=== PATIENT | male | born 1940 | race Caucasian/White ===

== ENCOUNTER 2018-12-03 07:23 | Outpatient (CLI) | payer MEDICARE ==
[2018-11-29 12:56] VITALS: BMI 25.1
[~2018-12-03 07:23] MED LIST: ASCORBIC ACID500 MG PO; MELATONIN5 MG PO; MICARDIS HCT 81 EACH PO; PRAVACHOL80 MG PO; VITAMIN D5000 UNIT PO; VITAMIN E200 UNI1 PO
[2018-12-03 08:13] LABS: BASOPHILS 0.2 % (0-2); EOSINOPHILS 2.6 % (0-7); HEMATOCRIT 42.9 % (42.0-54.0); LYMPHOCYTES 19.7 % (15-50); MCH 31.6 pg (26.0-34.0); MCV 90.5 fL (80.0-100.0); MEAN PLATELET VOLUME 9.9 fL (7.4-10.4); MONOCYTES 12.1 % (2-11); NEUTROPHILS 65.4 % (40-80); PLATELET COUNT 202 10x3/uL (130-400); RBC 4.74 10x6/uL (4.20-6.10); RDW 12.7 % (11.5-14.5)
[2018-12-03 08:27] LABS: APTT 32.2 SECONDS (22.8-39.4); INR 1.02 (0.85-1.17); PROTIME 12.9 SECONDS (11.6-15.0)
[2018-12-03 08:44] LABS: CALC OSMOLALITY 270 mosm/kg (275-300); CALCIUM 9.7 mg/dL (8.5-10.1); CHLORIDE - SERUM 99 mmol/L (98-107); CREATININE - SERUM 0.9 mg/dL (0.6-1.3); GLUCOSE 122 mg/dL (74-106); POTASSIUM - SERUM 4.2 mmol/L (3.5-5.1); SODIUM 135 mmol/L (136-145); UREA NITROGEN 13 mg/dL (7-18); eGFR NON AFRICAN AMERICAN 86 mL/min (90-120)
[2018-12-03] MEDS ORDERED: XANAX0.25 MG PO (09:17)
[2018-12-03] MEDS ORDERED: CLONIDINE HCL (09:19)
--- NOTE | 2018-12-03 11:10 | NUR ---
1115 SEE FREQUENT VS SHEET
--- NOTE | 2018-12-03 11:31 | NUR ---
PT RESTING WITH FAMILY AT BEDSIDE. APPEARS COMFORTABLE AND NO SOB NOTED.
--- NOTE | 2018-12-03 12:08 | NUR ---
PT RESTING AND VS STABLE, DENIES PAIN AT SITE. AT BEDSIDE. INSTRUCTIONS ABOUT HIS PROCEDURE GIVEN FROM PAMPHLET
--- NOTE | 2018-12-03 12:09 | NUR ---
CXR HERE AND DONE TOLERATED WELL
--- NOTE | 2018-12-03 13:07 | NUR ---
XRAY REPORT GOOD PER RADIOLOGY
== END 2018-12-03 14:29 | disposition home or self-care (01) ==
LOC: D.SP 07:23 → D.CT 09:00 → D.SP 14:29
PROVIDERS: Radiology Vascular & Interventional Radiology; ATTEND Family Medicine
DX: C34.2 Malignant neoplasm of middle lobe, bronchus or lung (principal); Z01.812 Encounter for preprocedural laboratory examination

== ENCOUNTER 2019-01-23 11:39 | Inpatient (IN) | payer MEDICARE ==
[~2019-01-23] VITALS: Ht 182.9 cm; Wt 87.6 kg
[~2019-01-23 11:39] MED LIST changes: +CLONIDINE HCL; +XANAX0.25 MG PO
[2019-01-23 13:57] LABS: ALBUMIN 4.1 g/dL (3.4-5.0); ALKALINE PHOSPHATASE 61 U/L (46-116); ALT (SGPT) 27 U/L (10-68); BILIRUBIN - TOTAL 0.62 mg/dL (0.2-1.3); CALC OSMOLALITY 272 mosm/kg (275-300); CALCIUM 9.7 mg/dL (8.5-10.1); CARBON DIOXIDE 32.4 mmol/L (21.0-32.0); CHLORIDE - SERUM 99 mmol/L (98-107); CREATININE - SERUM 0.8 mg/dL (0.6-1.3); GLUCOSE 103 mg/dL (74-106); POTASSIUM - SERUM 3.7 mmol/L (3.5-5.1); PROTEIN - SERUM 7.6 g/dL (6.4-8.2); SODIUM 136 mmol/L (136-145); UREA NITROGEN 16 mg/dL (7-18); eGFR NON AFRICAN AMERICAN > 90 mL/min (90-120)
[2019-01-23 13:58] LABS: APTT 29.6 SECONDS (22.8-39.4); INR 0.99 (0.85-1.17); PROTIME 12.6 SECONDS (11.6-15.0)
[2019-01-23 14:16] LABS: APPEARANCE CLEAR (CLEAR); BILIRUBIN NEGATIVE (NEGATIVE); COLOR YELLOW (YELLOW); GLUCOSE NEGATIVE (NEGATIVE); KETONE NEGATIVE (NEGATIVE); NITRITE NEGATIVE (NEGATIVE); PROTEIN NEGATIVE (NEGATIVE); SPECIFIC GRAVITY 1.005 (1.005-1.020); UROBILINOGEN NORMAL (NORMAL)
[2019-01-23 14:23] LABS: HEMATOCRIT 42.1 % (42.0-54.0); HEMOGLOBIN 15.1 g/dL (13.5-17.5); MCH 32.1 pg (26.0-34.0); MCHC 35.9 g/dL (31.0-37.0); MCV 89.4 fL (80.0-100.0); MEAN PLATELET VOLUME 9.8 fL (7.4-10.4); RBC 4.71 10x6/uL (4.20-6.10); RDW 12.6 % (11.5-14.5); WBC 4.5 10x3/uL (4.8-10.8)
[2019-01-28] VITALS (9 sets, daily range): BP systolic 100–174; BP diastolic 32–88; BMI 24.8
--- NOTE | 2019-01-28 15:47 | NUR ---
REC'D VIA BED FROM OR S/P THOROCOTOMY W/ RML LOBECTOMY. GARRICK @ 0.2MCG MIN. AWAKE/ GROGGY.
--- NOTE | 2019-01-28 16:10 | NUR ---
ADM ASSESS DONE. IN AND UPDATED. INSTRUCTED ON USE OF SUPERVISOR DYER EPIDURAL.
--- NOTE | 2019-01-28 17:00 | NUR ---
GARRICK OFF. C/O HURTS W/ C/DB. REINFORCED BULK MAIL CLERK USE. TAKING ICE CHIPS.
--- NOTE | 2019-01-28 19:15 | NUR ---
BEDSIDE SHIFT REPORT GIVEN BY DEPARTING RN. PT LAYING IN BED WATCHING TV. AAOX4. C/O SHOULDER PAIN RATING A /10. REINFORCED DIGITAL ACCOUNT DIRECTOR USAGE. RT IJ CVL NOTED AND INFUSING PATENTLY. TWO RT LATERAL POSTERIOR AND ANTERIOR CT NOTED. F/C DRAINAING TO GRAVITY. ARON AND SCDS ON. REPOSITIONED. FRESH ICE WATER PROVIDED. DIGITAL ACCOUNT DIRECTOR PUMP NOTED AND DOCUMENTED. 2L NC 98%. SAFETY MEASURES IN PLACE. CBIR. DENIES ANY NEEDS AT THIS TIME.
--- NOTE | 2019-01-28 21:13 | NUR ---
PULLED PT UP IN BED WITH HELP FROM Candida GALLEGO RN. TOLERATED WELL. REPOSITIONED.
--- NOTE | 2019-01-28 23:09 | NUR ---
REASSESSMENT COMPLETE. NO NEW CHANGES NOTED IN PT CONDITION. NO SS OF DISTRESS. VSS. REPOSITIONED. SAFETY MEASURES IN PLACE. CBIR.
[2019-01-29] VITALS (24 sets, daily range): BP systolic 110–171; BP diastolic 53–86; BMI 26.9
--- NOTE | 2019-01-29 01:35 | NUR ---
LOUD CRASH SOUND CAME FROM PT ROOM. MOVEMENT NOTED IN SUPERVISOR PLATE FORMING. UPON ENTERING ROOM, BED REMOTE ON FLOOR. PT REPOSITIONED SELF IN BED. DENIES ANY NEEDS. SAFETY MEASURES IN PLACE. CBIR.
--- NOTE | 2019-01-29 01:52 | NUR ---
DR. JOHNSON AT BEDSIDE. UPDATE GIVEN. NO NEW NETWORK OPERATIONS CENTER TECHNICIAN ORDERS.
--- NOTE | 2019-01-29 03:21 | NUR ---
REASSESSMENT COMPLETE. NO NEW CHANGES NOTED IN PT CONDITION. VSS. DENIES ANY NEEDS. DENIES ANY PAIN. PULLED UP IN BED WITH HELP FROM Candida GALLEGO RN. TOLERATED WELL.
[2019-01-29 05:59] LABS: HEMATOCRIT 35.6 % (42.0-54.0); HEMOGLOBIN 12.4 g/dL (13.5-17.5); MCH 31.3 pg (26.0-34.0); MCHC 34.8 g/dL (31.0-37.0); MCV 89.9 fL (80.0-100.0); MEAN PLATELET VOLUME 9.4 fL (7.4-10.4); RBC 3.96 10x6/uL (4.20-6.10); RDW 12.8 % (11.5-14.5)
[2019-01-29 06:21] LABS: ALBUMIN 2.9 g/dL (3.4-5.0); ALKALINE PHOSPHATASE 40 U/L (46-116); ALT (SGPT) 22 U/L (10-68); BILIRUBIN - TOTAL 0.71 mg/dL (0.2-1.3); CALC OSMOLALITY 272 mosm/kg (275-300); CALCIUM 8.2 mg/dL (8.5-10.1); CARBON DIOXIDE 26.6 mmol/L (21.0-32.0); CHLORIDE - SERUM 99 mmol/L (98-107); CREATININE - SERUM 0.9 mg/dL (0.6-1.3); GLUCOSE 139 mg/dL (74-106); POTASSIUM - SERUM 3.5 mmol/L (3.5-5.1); PROTEIN - SERUM 5.8 g/dL (6.4-8.2); SODIUM 135 mmol/L (136-145); UREA NITROGEN 14 mg/dL (7-18); eGFR NON AFRICAN AMERICAN 86 mL/min (90-120)
--- NOTE | 2019-01-29 06:29 | NUR ---
PT LAYING IN BED WITH EYES CLOSED. REPOSITIONED SELF. NO SS OF DISTRESS.
--- NOTE | 2019-01-29 07:00 | NUR ---
REC'D REPORT AND RESUMED CARE, AAO, VSS, C/O PAIN 11/03, EPIDURAL IN PLACE AND IN USE, ASSESSMNET COMPLETED PER FLOWSHEET, VSS, REPOSITIONED UP AND TO LEFT SIDE WITH PILLOW PROPPED TO BACK AND HEELS FLOATED, NO NEEDS AT THIS TIME
--- NOTE | 2019-01-29 07:45 | NUR ---
CLD TO BEDSIDE, ASSIST WITH SET UP INDEPENDENT WITH EATING AND DRINKING
--- NOTE | 2019-01-29 09:15 | NUR ---
MORNING MEDS GIVEN PER MAR FLOWSHEET, TOLERATED WITHOUT DIFFICULTY
--- NOTE | 2019-01-29 11:00 | NUR ---
RESTING WITH NO SIGN OF DISTRESS VSS, NO ACUTE CHANGE FROM PREVIOUS ASSESSMENT
--- NOTE | 2019-01-29 11:40 | OP ---
PATIENT NAME: ESTEBAN GRANT MEDICAL RECORD: [id number] :38 LOCATION:D.[facility] D.CV08 ADMISSION DATE:01/28/19 SURGEON: CHAU CAMACHO MD DATE OF OPERATION: 01/28/2019 SURGEON: Chau Camacho MD ASSISTANTS: 1. Souleymane Oconnor MD 2. Michael Aviles OPERATIONS PERFORMED: 1. Right thoracotomy. 2. Right middle lobe lobectomy. 3. Mediastinal lymph node dissection. 4. Bronchoscopy. PREOPERATIVE DIAGNOSIS: Right middle lobe lung cancer. POSTOPERATIVE DIAGNOSIS: Right middle lobe lung cancer. ANESTHESIA: General endotracheal anesthesia. ESTIMATED BLOOD LOSS: 50 cc. COMPLICATIONS: None. SPECIMENS: 1. Right middle lobe. 2. Multiple lymph node stations including interlobar, hilar, anterior tracheal, posterior tracheal, subcarinal, and inferior pulmonary ligament lymph nodes. CONDITION: Stable. DISPOSITION: ICU. OPERATIVE FINDINGS: 1. Bronchoscopy with no endobronchial lesions of right mainstem and right upper lobe. 2. Large tumor involving the middle lobe with a mostly complete minor fissure. The tumor did not invade the upper lobe; therefore, was amenable to middle lobe resection. 3. No significant air leaks after the case. INDICATION: Middle lobe lung cancer. PROCEDURE NOTE IN DETAIL: The patient was brought to the operating suite. Double lumen general endotracheal anesthesia was obtained and position confirmed with bronchoscopy. The patient was turned into the left lateral decubitus position with appropriate padding including axillary roll. Right chest was prepped and draped. Right posterolateral thoracotomy incision was made. Subcutaneous tissue was divided. Portion of latissimus muscle was divided. Scapula was retracted upwardly. A portion of the fifth rib posteriorly was resected to allow a trapdoor-type opening into the pleura. The chest retractor was then placed and lung was visualized. There was no significant effusion. OPERATIVE REPORT [id number] ESTEBAN GRANT There were no significant adhesions. Hilum was freed. The vein drainage from the upper lobe and lower lobe was identified and veins to the middle lobe were divided. Arterial branches to the middle lobe were then divided between ligatures and clips. Finally, the bronchus was clamped. Upper and lower lobes were inflated briefly to ensure patency of the bronchus and then the bronchus was stapled and divided. Specimen was removed. Thorough irrigation with water was performed. Lymph node stations were dissected. The lymph nodes were carefully removed and sent for permanent specimen. Sites of resection were marked with clips. Hemostasis was assured. Progel was placed along some raw areas of the major fissure and along the staple lines. Lungs were totally reinflated. Chest tubes were placed at the apex and posteriorly. Chest was closed with pericostal sutures, 2 running muscle layers, and subcutaneous subcuticular suture. The patient was returned to supine position, extubated, and taken to the ICU in stable condition. TRANSINT:[id number] Voice Confirmation ID: [id number] DOCUMENT ID: [id number] CHAU CAMACHO MD at 1140 CC: TANYA LINDSEY and RAJAN COLEMAN MD [id number] DICTATION DATE: 01/28/19 1625 OPERATIONAL REVIEW SERGEANT: 01/28/[address] [facility] [address] [place] [id number]
--- NOTE | 2019-01-29 12:30 | NUR ---
BENITA CRUZ WITH CATHETER INTACT PER DR CAMACHO.
--- NOTE | 2019-01-29 12:45 | NUR ---
AT BEDSIDE ASSISTING WITH CLD, STATUS UPDATED, VOICES NO NEEDS AT THIS TIME
--- NOTE | 2019-01-29 13:01 | MORECARE ---
CASE MANAGEMENT DISCHARGE SUMMARY PATIENT: ESTEBAN GRANT UNIT: [id number] ADM DATE: 01/28/19 AGE: 78 : 38 SEX: M [facility] AUTHOR: CHAITANYA BARBA PHYSICIAN: REFERRING PHYSICIAN: ARELY CAMACHO MD DATE OF SERVICE: 01/29/19 Discharge Plan Patient Name: ESTEBAN GRANT [facility] [facility] 1940 Planned Disposition: Home Anticipated Discharge Date: 01/31/19 Discharge Date: Expected LOS: 3 Initial Reviewer: [email or web address] Initial Review Date: 01/28/2019 Generated: 01/29/19 2:01 pm DCPIA - Discharge Planning Initial Assessment Updated by [email or web address]: Janice Llanos on 01/29/19 12:57 pm * Is the patient Alert and Oriented? Yes * How many steps to enter\exit or inside your home? none * PCP Dr. Cox * Pharmacy [facility] 7 * Preadmission Environment Home with Family * ADLs Independent * Equipment None * List name and contact numbers for known caregivers / representatives who currently or will assist patient after discharge: [address] [facility] - [phone] * Verbal permission to speak to the caregivers and representatives has been obtained from the patient. Yes * Community resources currently utilized None * Additional services required to return to the preadmission environment? No * Can the patient safely return to the preadmission environment? Yes * Has this patient been hospitalized within the prior 30 days at any hospital? No Patient Name: ESTEBAN GRANT Page [id number] at 1301 All edits/amendments must be made on the electronic document DICTATION DATE: 01/29/19 1301 COMMUNICATIONS CLERK: VALE 01/29/19 1301 RPT#: [id number] DC DATE: STATUS: ADM IN [facility] [address] [place] [address] END OF REPORT
--- NOTE | 2019-01-29 13:09 | MORECARE ---
CASE MANAGEMENT DISCHARGE SUMMARY PATIENT: ESTEBAN RUFF UNIT: [id number] ADM DATE: 01/28/19 AGE: 78 : 38 SEX: M ROOM/BED: D[facility] AUTHOR: FREDA,CHAITANYA PHYSICIAN: REFERRING PHYSICIAN: ARELY CAMACHO MD DATE OF SERVICE: 01/29/19 Discharge Plan Patient Name: ESTEBAN RUFF Facility: [facility]:[place] : 1940 Planned Disposition: Home Anticipated Discharge Date: 01/31/19 Discharge Date: Expected LOS: 3 Initial Reviewer: [email or web address] Initial Review Date: 01/28/2019 Generated: 01/29/19 2:08 pm Comments DCP- Discharge Planning Updated by [email or web address]: Janice Llanos on 01/29/19 12:[address] Patient Name: ESTEBAN RUFF Admission Status: Elective Accout number: [id number] Admission Date: 01-28-2019 : 1940 Admission Diagnosis: Attending: ARELY CAMACHO Current LOS: 1 Anticipated DC Date: 01-31-2019 Planned Disposition: Home Primary Insurance: [employer] Discharge Planning Comments: CM met with patient to complete initial dc planning assessment. CM educated patient on the CM role and verbal consent given by patient to complete assessment. CM verified patient's address, phone number, and emergency contact phone numbers. Patient lives at home with his and was independent prior to admission. At discharge patient is unsure of his needs. He reported it took him one hour to sit up on the side of the bed and recover afterwards. Once he starts to get up with therapy he will better know what his dc needs are going to be. CM discussed availability of home health, rehab services, and medical equipment. Patient reports if he goes home his or son will transport him home at time of discharge. CM will assist with arranging rehab/skilled or home health if needed at discharge. CM will continue to follow and will assist as needed with dc plans/needs Brine Room Laborer: Janice Llanos RN, [facility] DCPIA - Discharge Planning Initial Assessment Updated by [id number]: Janice Llanos on 01/29/19 12:57 pm * Is the patient Alert and Oriented? Yes * How many steps to enter\exit or inside your home? none * PCP Dr. Cox * Pharmacy [facility] 7 * Preadmission Environment Home with Family * ADLs Independent * Equipment None * List name and contact numbers for known caregivers / representatives who currently or will assist patient after discharge: Dianne Ruff - [place] - [phone] * Verbal permission to speak to the caregivers and representatives has been obtained from the patient. Yes * Community resources currently utilized None * Additional services required to return to the preadmission environment? No * Can the patient safely return to the preadmission environment? Yes * Has this patient been hospitalized within the prior 30 days at any hospital? No Last DP export: 01/29/19 12:01 pm Patient Name: ESTEBAN RUFF Page [phone] at 1309 All edits/amendments must be made on the electronic document DICTATION DATE: 01/29/19 1308 PROCUREMENT INTERN: VALE 01/29/19 1308 RPT#: [id number] DC DATE: STATUS: ADM IN [facility] [address] [place] [address] END OF REPORT
--- NOTE | 2019-01-29 15:00 | NUR ---
SLEEPING WITH NO SIGN OF DISTRESS, VSS, C/O PAIN 11/03, EPIDURAL IN PLACE, CT IN PLACE DRAINING SANGUINOUS DRAINAGE, DRESSING CDI, NO OTHER ACUTE CHANGE FROM PREVIOUS
--- NOTE | 2019-01-29 16:13 | OP ---
PATIENT NAME: ESTEBAN GRANT MEDICAL RECORD: [id number] :36 [facility] ADMISSION DATE:01/28/19 SURGEON: ARELY CAMACHO MD DATE OF OPERATION: 01/28/[address] Oconnor was the it administrative assistant surgeon for this case. His involvement consisted of dividing branches to the middle lobe and completing fissures with the staple line as well as retraction of the lung. The use of an it administrative assistant surgeon was necessary due to the large and cumbersome size of the tumor affecting the middle lobe near the hilum. TRANSINT:[id number] Voice Confirmation ID: [id number] DOCUMENT ID: [id number] ARELY CAMACHO MD at 1613 CC: [id number] DICTATION DATE: 01/29/19 1107 VP LEGAL AFFAIRS: 01/29/19 1532 ADM IN [facility] [address] [place] [address]
--- NOTE | 2019-01-29 17:30 | NUR ---
COMPLETED CLD, TOLERATED WITHOUT DIFFICULTY, REPOSITIONED UP IN BEDS, CHLORASEPTIC SPRAY TO SORE THROAT, CALL LIGHT IN REACH, NO OTHER NEEDS AT THIS TIME
--- NOTE | 2019-01-29 19:09 | NUR ---
BEDSIDE SHIFT REPORT GIVEN BY DEPARTING RN. PT LAYING IN BED WITH EYES CLOSED. AAOX4. DENIES ANY PAIN AT THIS TIME. VSS. ANTERIOR AND POSTERIOR CT NOTED AND DOCUMENTED. F/C DRAINAING TO GRAVITY. RT IJ NOTED. REPOSITIONED IN BED. ASSESSMENT COMPLETE. SEE FLOWSHEET FOR DETAILS. OFFERED BED BATH. PT DENIED AT THIS TIME. WILL TRY AGAIN LATER. SAFETY MEASURES IN PLACE. CBIR.
--- NOTE | 2019-01-29 20:54 | NUR ---
HS MEDS GIVEN. DENIED BED TIME SNACK. ANXIOUS ABOUT CT PAIN AND DEEP BREATHING. ENCOURAGED INDUSTRIAL PSYCHOLOGY TEACHER USAGE, EXPLAINED THE REASONS FOR PAIN. PT VERBALIZES UNDERSTANDING. SAFETY MEASURES IN PLACE. CBIR.
--- NOTE | 2019-01-29 21:48 | NUR ---
USED CALL LIGHT TO ALERT NURSE. UPON ENTERING ROOM, PT WATCHIGN VS MONITOR. VERY ANXIOUS ABOUT BP AND HR BEING ELEVATED. UNABLE TO CALM PT DOWN AT THIS TIME. EXPLAINED HIS ANXIETY IS THE CAUSE OF THE ELEVATED BP OF 171/82. HR 92. PT REQUESTING MORE BP MEDICATION. EXPLAINED TO PT TO CALM DOWN AND WATCH HIS BP LOWER HE TAKES DEEP BREATHS AND FOCUSES ON HAPPY THOUGHTS. NEXT BP 146/85. ATTEMPTED TO GIVE BED BATH. PT AGAIN DENIED. WILL ATTEMPT AGAIN AT A LATER TIME.
--- NOTE | 2019-01-29 23:39 | NUR ---
REASSESSMENT COMPLETE. NO CHANGES NOTED IN PT CONDITION. VSS. SHOWING NO SS OF DISTRESS. DENIED PAIN. DENIES ANY NEEDS. FRESH ICE WATER PROVIDED. SAFETY MEASURES IN PLACE. CBIR.
[2019-01-30] VITALS (34 sets, daily range): BP systolic 93–156; BP diastolic 50–91
--- NOTE | 2019-01-30 00:48 | NUR ---
2L NC APPLIED TO PT DURING SLEEP. O2 DROPPING TO MID 80'S WITH PERIODS OF APNEA. NO SS OF DISTRESS NOTED.
--- NOTE | 2019-01-30 03:05 | NUR ---
REASSESSMENT COMPLETE. NO NEW CHANGES IN PT CONDITION, VSS.
[2019-01-30 05:48] LABS: HEMATOCRIT 35.8 % (42.0-54.0); HEMOGLOBIN 12.8 g/dL (13.5-17.5); MCH 31.8 pg (26.0-34.0); MCHC 35.8 g/dL (31.0-37.0); MCV 88.8 fL (80.0-100.0); MEAN PLATELET VOLUME 9.2 fL (7.4-10.4); RBC 4.03 10x6/uL (4.20-6.10); RDW 12.8 % (11.5-14.5)
--- NOTE | 2019-01-30 05:56 | NUR ---
COMPLETE BED BATH GIVEN USING HCG SOLUTION AND WATER. LINENS CHANGED. EKG LEADS CHANGED. CATIE CARE COMPLETE. TOLERATED WELL. VSS.
[2019-01-30 06:27] LABS: ALBUMIN 2.7 g/dL (3.4-5.0); ALKALINE PHOSPHATASE 50 U/L (46-116); ALT (SGPT) 22 U/L (10-68); BILIRUBIN - TOTAL 1.02 mg/dL (0.2-1.3); CALC OSMOLALITY 262 mosm/kg (275-300); CALCIUM 8.5 mg/dL (8.5-10.1); CARBON DIOXIDE 27.2 mmol/L (21.0-32.0); CHLORIDE - SERUM 96 mmol/L (98-107); CREATININE - SERUM 0.8 mg/dL (0.6-1.3); GLUCOSE 144 mg/dL (74-106); POTASSIUM - SERUM 3.8 mmol/L (3.5-5.1); PROTEIN - SERUM 5.8 g/dL (6.4-8.2); SODIUM 130 mmol/L (136-145); eGFR NON AFRICAN AMERICAN > 90 mL/min (90-120)
[2019-01-30 06:36] LABS: UREA NITROGEN 9 mg/dL (7-18)
--- NOTE | 2019-01-30 07:00 | NUR ---
REC'D REPORT AND RESUMED CARE, SLEEPING WITH NO SIGNS OF DISTRESS, VSS, O2 VIA NC AT 2L, CT X2 TO SUCTION WITH SANGUINOUS DRAINAGE TO CONTAINER, RIGHT IJ WITH PLASMALYTE INFUSING AT 30 CC/HR, EPIDURAL IN PLACE INUSIGN FENTAMYL AND BUPVICAINE AT 5 ML/HR, C/O LATERAL RIGHT SIDE SPASMS AND SHOULDER PAIN /, GARCIA TO GRAVITY WITH CLEAR YELLOW DRAINAGE TO BAG, REPOSITIONED UP AND TO LEFT SIDE, TEDS/SCDS IN USE, NO NEEDS AT THIS TIME, USING EPIDURAL STOREKEEPER HELPER FOR PAIN CONTROL.
--- NOTE | 2019-01-30 07:45 | NUR ---
BREAKFAST TRAY TO BEDSIDE, ASSIST WITH SET UP INDEPENDENT WITH EATING
--- NOTE | 2019-01-30 09:00 | NUR ---
MORNING MEDS GIVEN PER OCT FLOWSHEET
--- NOTE | 2019-01-30 09:15 | NUR ---
ISIDRO NURSE WITH DR CAMACHO AT BEDSIDE, HR 150'S, SHE WILL CHECK WITH DR CAMACHO FOR ORDERS
--- NOTE | 2019-01-30 09:28 | NUR ---
2.5 LOPRESSOR IV GIVEN PER ORDER, STAT EKG IN PROGRESS
--- NOTE | 2019-01-30 10:40 | NUR ---
CORDARONE BOLUS INITIATED PER ORDERS
--- NOTE | 2019-01-30 10:55 | NUR ---
CORDARONE GTT INITIATED AT 1 MG/HR PER ORDER
--- NOTE | 2019-01-30 11:09 | NUR ---
CP LENIN FELIX WITH DR CAMACHO, UPDATED RE: HR AND RHYTHMN, WILL GIVE NEW ORDER
--- NOTE | 2019-01-30 13:33 | NUR ---
HR/RHYTHM CONTINUES AFIB 130'S, 12.5 LOPRESSOR GIVEN PER ORDER
[2019-01-30 14:22] LABS: MAGNESIUM - SERUM 1.7 mg/dL (1.8-2.4); POTASSIUM - SERUM 3.5 mmol/L (3.5-5.1)
--- NOTE | 2019-01-30 14:25 | NUR ---
CARDIZEM 5 MG BOLUS GIVEN PER ORDER
--- NOTE | 2019-01-30 14:34 | NUR ---
CARDIZEM GTT INITIATED AND 5 MG/HR AND CORDARONE TITRATIED TO 0.5 MG/HR PER ORDER
--- NOTE | 2019-01-30 15:00 | NUR ---
RESTING WITH NO SIGNS OF DISTRESS, HR 100'S, NO OTHER ACUTE CHANGE FROM PREVIOUS ASSESSMENT
--- NOTE | 2019-01-30 17:30 | NUR ---
HR IN 90'S, A FIB, OTHER VSS, DENIES ANY DISTRESS, WATCHING TV. N NEEDS AT THIS TIME
--- NOTE | 2019-01-30 19:24 | NUR ---
BEDSIDE SHIFT REPORT GIVEN BY DEPARTING RN. PT LAYING IN BED WITH EYES CLOSED. AAOX4. RT IJ CVL PATENT. CTX2 DRESSING SATURATED. RT LAT INCISION DRESSING C.D.I. EPIDURAL NOTED, WITH DRESSING C/D/I. ASSESSMENT COMPLETE. SEE FLOWSHEET FOR DETAILS. REPOSITIONS SELF. HR A-FIB, ALL OTHER VSS. SAFETY MEASURES IN PLACE. CBIR.
--- NOTE | 2019-01-30 21:38 | NUR ---
HS MEDS GIVEN. HELD LOPRESSOR D/T BP. SEE MAR FOR DETAILS. HCG BED BATH GIVEN. LINENS CHANGED. CATIE CARE PERFORMED. CT DRESSING CHANGED. TOLERATED WELL.
--- NOTE | 2019-01-30 22:08 | NUR ---
VISITORS AT BEDSIDE.
[2019-01-31] VITALS (23 sets, daily range): BP systolic 94–166; BP diastolic 46–91; Ht 182.9 cm; Wt 87.6 kg
--- NOTE | 2019-01-31 03:32 | NUR ---
REASSESSMENT COMPLETE. HR A-FLUTTER WITH RATE OF 66. ASYMPTOMATIC. DENIES ANY PAIN OR NEEDS AT THIS TIME. SAFETY MEASURES IN PLACE. CBIR.
--- NOTE | 2019-01-31 05:03 | NUR ---
DANGLED AT BEDSIDE. TOLERATED WELL.
[2019-01-31 05:21] LABS: HEMATOCRIT 31.7 % (42.0-54.0); HEMOGLOBIN 11.4 g/dL (13.5-17.5); MCH 31.7 pg (26.0-34.0); MCV 88.1 fL (80.0-100.0); MEAN PLATELET VOLUME 9.2 fL (7.4-10.4); RBC 3.6 10x6/uL (4.20-6.10); RDW 12.6 % (11.5-14.5); WBC 8.8 10x3/uL (4.8-10.8)
[2019-01-31 05:34] LABS: ALBUMIN 2.1 g/dL (3.4-5.0); ALKALINE PHOSPHATASE 59 U/L (46-116); ALT (SGPT) 26 U/L (10-68); BILIRUBIN - TOTAL 0.72 mg/dL (0.2-1.3); CALC OSMOLALITY 253 mosm/kg (275-300); CALCIUM 7.8 mg/dL (8.5-10.1); CARBON DIOXIDE 27.6 mmol/L (21.0-32.0); CHLORIDE - SERUM 93 mmol/L (98-107); CREATININE - SERUM 0.6 mg/dL (0.6-1.3); GLUCOSE 128 mg/dL (74-106); POTASSIUM - SERUM 3.5 mmol/L (3.5-5.1); PROTEIN - SERUM 5.2 g/dL (6.4-8.2); SODIUM 126 mmol/L (136-145); UREA NITROGEN 10 mg/dL (7-18); eGFR NON AFRICAN AMERICAN > 90 mL/min (90-120)
[2019-01-31 11:00] LABS: ALBUMIN 2.1 g/dL (3.4-5.0); ALKALINE PHOSPHATASE 62 U/L (46-116); ALT (SGPT) 26 U/L (10-68); BILIRUBIN - TOTAL 0.71 mg/dL (0.2-1.3); CALC OSMOLALITY 257 mosm/kg (275-300); CALCIUM 7.6 mg/dL (8.5-10.1); CARBON DIOXIDE 28.5 mmol/L (21.0-32.0); CHLORIDE - SERUM 93 mmol/L (98-107); CREATININE - SERUM 0.6 mg/dL (0.6-1.3); GLUCOSE 127 mg/dL (74-106); POTASSIUM - SERUM 3.9 mmol/L (3.5-5.1); PROTEIN - SERUM 4.6 g/dL (6.4-8.2); SODIUM 128 mmol/L (136-145); UREA NITROGEN 11 mg/dL (7-18); eGFR NON AFRICAN AMERICAN > 90 mL/min (90-120)
--- NOTE | 2019-01-31 11:33 | NUR ---
Nutrition Follow Up: Chart reviewed. Pt is POD 3 Pulmonary Resection. Diet: Regular; Ensure TID PO Intake: 90% meal avg No BM since admit I>O Labs reviewed - Na low Meds noted Rec continue current diet, supplement regimen. RD following.
--- NOTE | 2019-01-31 14:35 | NUR ---
1415: SPOKE WITH Levi LAMBERT RN (DR. CAMACHO'S NURSE) REGARDING SUSTAINED HR 130S. RESTARTED ON CORDARONE GTT @ 0.5MG/MIN. 1430: HERE. ORDERS REC'D TO BOLUS WITH 150 MG CORDARONE AND INCREASE GTT TO 1 MG/MIN.
[2019-01-31 15:36] LABS: POTASSIUM - URINE 59.9 MMOL/L (12.0-62.0)
--- NOTE | 2019-01-31 16:15 | NUR ---
DR. BRIONES HERE. NEW ORDERS REC'D.
--- NOTE | 2019-01-31 16:45 | NUR ---
DR. CAMACHO HERE. R POSTERIOR CHEST TUBE DC'D BY DR. CAMACHO. SITE REDRESSED WITH 4X4S AND TEGADERM.
[2019-01-31 18:44] LABS: POTASSIUM - SERUM 3.7 mmol/L (3.5-5.1)
[2019-01-31 18:45] LABS: MAGNESIUM - SERUM 2.6 mg/dL (1.8-2.4)
--- NOTE | 2019-01-31 19:59 | NUR ---
REPORT RECEIVED AND ASSESSMENT COMPLETED. SEE FLOWSHEET FOR FULL DETAILS. VSS. WILL MONITOR CLOSELY THROUGHOUT SHIFT.
[2019-02-01] VITALS (25 sets, daily range): BP systolic 85–159; BP diastolic 49–90
[2019-02-01 05:59] LABS: HEMATOCRIT 31.5 % (42.0-54.0); HEMOGLOBIN 11.4 g/dL (13.5-17.5); MCH 31.5 pg (26.0-34.0); MCHC 36.2 g/dL (31.0-37.0); MEAN PLATELET VOLUME 9.8 fL (7.4-10.4); RBC 3.62 10x6/uL (4.20-6.10); RDW 12.5 % (11.5-14.5); WBC 7.7 10x3/uL (4.8-10.8)
[2019-02-01 06:15] LABS: ALKALINE PHOSPHATASE 124 U/L (46-116); BILIRUBIN - TOTAL 0.67 mg/dL (0.2-1.3); CALC OSMOLALITY 252 mosm/kg (275-300); CARBON DIOXIDE 28.9 mmol/L (21.0-32.0); CHLORIDE - SERUM 92 mmol/L (98-107); CREATININE - SERUM 0.7 mg/dL (0.6-1.3); GLUCOSE 111 mg/dL (74-106); POTASSIUM - SERUM 3.7 mmol/L (3.5-5.1); PROTEIN - SERUM 5.4 g/dL (6.4-8.2); SODIUM 125 mmol/L (136-145); UREA NITROGEN 12 mg/dL (7-18); eGFR NON AFRICAN AMERICAN > 90 mL/min (90-120)
[2019-02-01 06:16] LABS: ALT (SGPT) 35 U/L (10-68)
--- NOTE | 2019-02-01 12:00 | NUR ---
EPIDURAL DC'D BY ANESTHESIA.
--- NOTE | 2019-02-01 17:50 | NUR ---
165: DR. ALEXANDER NOTIFIED OF UNCONTROLLED ATRIAL FIB RATE 130-150 SUSTAINED X APPROX 20MIN. REVIEW OF MEDS DONE. INSTRUCTED TO CALL DR. CARMONA AND THEN CALL HIM BACK. 1656: DR. CARMONA NOTIFIED OF HEART RATE AND RHYTHM. NEW ORDERS REC'D. 1700: ORDERS FOR CARDIZEM BOLUS AND GTT OKAYED BY DR. ALEXANDER. 1720: CARDIZEM 10MG BOLUS GIVEN. 1725: CARDIZEM GTT STARTED AT 5MG/HR.
[2019-02-02] VITALS (24 sets, daily range): BP systolic 82–147; BP diastolic 43–90
[2019-02-02 06:13] LABS: CALC OSMOLALITY 260 mosm/kg (275-300); CALCIUM 8.3 mg/dL (8.5-10.1); CARBON DIOXIDE 27.9 mmol/L (21.0-32.0); CHLORIDE - SERUM 95 mmol/L (98-107); CREATININE - SERUM 0.7 mg/dL (0.6-1.3); GLUCOSE 117 mg/dL (74-106); SODIUM 129 mmol/L (136-145); UREA NITROGEN 15 mg/dL (7-18); eGFR NON AFRICAN AMERICAN > 90 mL/min (90-120)
[2019-02-02 07:07] LABS: BASOPHILS 0.1 % (0-2); EOSINOPHILS 1.2 % (0-7); HEMATOCRIT 33.8 % (42.0-54.0); IMMATURE GRANULOCYTES 0.3 % (0-5); LYMPHOCYTES 6.4 % (15-50); MCH 31.5 pg (26.0-34.0); MCHC 35.5 g/dL (31.0-37.0); MCV 88.7 fL (80.0-100.0); MEAN PLATELET VOLUME 9.7 fL (7.4-10.4); MONOCYTES 14.5 % (2-11); NEUTROPHILS 77.5 % (40-80); PLATELET COUNT 257 10x3/uL (130-400); RBC 3.81 10x6/uL (4.20-6.10); WBC 8.9 10x3/uL (4.8-10.8)
--- NOTE | 2019-02-02 14:15 | NUR ---
1410: IV STARTED TO L FOREARM WITH 20G ON 1ST ATTEMPT. SALINE LOCKED. 1415: R IJ DC'D. MANUAL PRESSURE HELD X 2 MIN. DRESSED WITH 4X4 AND TEGADERM.
--- NOTE | 2019-02-02 19:00 | NUR ---
REPOSRT RECEIVED, SHIFT ASSESSMENT COMPLETE, SEE FLOW SHEET, PT AAOx4, DENIES PAIN, REPOSITIONES SELF, CT TO 20CM SUCTION, SAFTEY PRECAUTIONES IN PLACE, VSS, WILL CONTINUE TO MONITOR
--- NOTE | 2019-02-02 23:00 | NUR ---
REASSESSMENT COMPLETE PER FLOW SHEET, NO ACUTE CHANGE NOTED, PT RESTING WITH EYES CLOSED, WAKES WHEN NURSE ENTERS ROOM, CT INTACT WITH NO AIR LEAK, VSS, WILL CONTINUE TO MONITOR
[2019-02-03] VITALS (24 sets, daily range): BP systolic 108–144; BP diastolic 58–84
--- NOTE | 2019-02-03 03:00 | NUR ---
REASSESSMENT COMPLETE SEE FLOW SHEET, NO ACUTE CHANGES, PT RESTING COMFORTABLY AAOx4, DENIES PAIN OR NEEDS AT THIS TIME, VSS, WILL CONTINUE TO MONITOR
[2019-02-03 04:30] LABS: BASOPHILS 0.3 % (0-2); EOSINOPHILS 2.2 % (0-7); HEMATOCRIT 30.3 % (42.0-54.0); HEMOGLOBIN 10.7 g/dL (13.5-17.5); IMMATURE GRANULOCYTES 0.5 % (0-5); LYMPHOCYTES 10.5 % (15-50); MCH 31.5 pg (26.0-34.0); MCHC 35.3 g/dL (31.0-37.0); MCV 89.1 fL (80.0-100.0); MEAN PLATELET VOLUME 9.1 fL (7.4-10.4); MONOCYTES 15.2 % (2-11); NEUTROPHILS 71.3 % (40-80); PLATELET COUNT 225 10x3/uL (130-400); RDW 12.9 % (11.5-14.5)
[2019-02-03 04:45] LABS: CALC OSMOLALITY 267 mosm/kg (275-300); CALCIUM 8.4 mg/dL (8.5-10.1); CARBON DIOXIDE 29.1 mmol/L (21.0-32.0); CHLORIDE - SERUM 99 mmol/L (98-107); CREATININE - SERUM 0.6 mg/dL (0.6-1.3); GLUCOSE 120 mg/dL (74-106); SODIUM 133 mmol/L (136-145); UREA NITROGEN 15 mg/dL (7-18); eGFR NON AFRICAN AMERICAN > 90 mL/min (90-120)
--- NOTE | 2019-02-03 06:00 | NUR ---
CHG BATH COMPLETED, CLEAN NEW GOWN GIVEN AND LINEN CHANGE, ARON HOSE AND NON-SLIP SOCKS REPLACED, PT UP TO BEDSIDE CHAIR WITH MINIMAL ASSIST, VSS, WILL CONTINUE TO MONITOR
--- NOTE | 2019-02-03 07:30 | NUR ---
SHIFT REPORT RECEIVED. AA&O. SITTING UP IN CHAIR. DENIES PAIN AT THIS TIME. NO FEVER NOTED. HR NORMAL SINUS IN 80S. CT ON RIGHT LATERAL SIDE WITH SEROUS DRAINAGE NOTED. CT TO 20CM SUCTION. NO AIR LEAK NOTED AT THIS TIME. VSS. ARON HOSE ON BOTH LE. INCISION ON RIGHT POSTERIOR CHEST CDI. SHIFT ASSESSMENT COMPLETED AND CHARTED IN FLOWSHEET. SAFETY MEASURES IN PLACE. CALL LIGTH IN REACH. WILL CONTINUE TO MONITOR.
--- NOTE | 2019-02-03 08:45 | NUR ---
HR APPEARS BACK IN A-FIB AT THIS TIME. PO CARDIZEM AND AMIODARONE HAVE BEEN GIVEN. WILL CONTINUE TO MONITOR.
--- NOTE | 2019-02-03 09:00 | NUR ---
ISIDRO RN WITH DR. DOUG FAROOQIED OF PATIENT BEING BACK IN A-FIB AT THIS TIME.
--- NOTE | 2019-02-03 09:37 | NUR ---
AMBULATED TO RESTROOM AT THIS TIME. PATIENT REPORTING HAVING BM AT THIS TIME. ASSISTED BACK TO CHAIR. NO FURTHER NEEDS. WILL CONTINUE TO MONITOR.
--- NOTE | 2019-02-03 09:56 | NUR ---
Nutrition follow up: Reviewed chart and spoke with pt and nursing Regular diet ordered with Ensure on all trays Pt eating 50-100% of most meals-pt reports trying to eat well Pt on a free water fluid restriction as Na is trending up Encouraged good po intake to help with healing and help pt maintain strength RD following
--- NOTE | 2019-02-03 10:11 | NUR ---
ISIDRO RN IN UNIT. STATED THAT DR. ALEXANDER WOULD LIKE FOR DR. CAMPBELL TO COME BY AND RE-EVALUATE PATIENT. DR. CAMPBELL PAGED AT THIS TIME.
--- NOTE | 2019-02-03 10:26 | NUR ---
CALLED CARDIOLOGY OFFICE AT THIS TIME. WAS INFORMED THAT DR. CAMPBELL IS OUT TODAY. TUBING OILER WILL BE TO DO ROUNDS ON DR. CAMPBELL'S PATIENTS.
--- NOTE | 2019-02-03 11:09 | NUR ---
DR. GARCIA AT BEDSIDE.
--- NOTE | 2019-02-03 12:31 | NUR ---
DR. CAMACHO IN UNIT. ORDERED ONE TIME DOSE OF NORCO 5MG TO BE GIVEN AT THIS TIME. WILL REMOVE CHEST TUBE.
--- NOTE | 2019-02-03 13:11 | NUR ---
PT BACK IN BED. CT REMOVED BY DR. CAMACHO. SPOUSE AT BEDSIDE. NO FURTHER NEEDS. WILL CONTINUE TO MONITOR.
--- NOTE | 2019-02-03 13:23 | NUR ---
AMBULATED ABOUT 250FT WITH PHYSICAL THERAPY.
--- NOTE | 2019-02-03 14:22 | NUR ---
AMBULATED ABOUT 500FT WITH PHYSICAL THERAPY AT THIS TIME.
--- NOTE | 2019-02-03 17:34 | NUR ---
MEAL TRAY IN ROOM. HR NORMAL SINUS IN 70S. DENIES ANY PAIN AT THIS TIME. WILL CONTINUE TO MONITOR.
--- NOTE | 2019-02-03 18:15 | NUR ---
PT ASSISTED BACK TO BED. AMBULATES WELL WITH MINIMAL ASSISTANCE. NO FURTHER NEEDS. WILL CONTINUE TO MONITOR.
--- NOTE | 2019-02-03 19:00 | NUR ---
REPORT RECEIVED, SHIFT ASSESMENT PER FLOW SHEET, PT AAOx4 SITTING UP IN CHAIR, DENIES PAIN OR NEEDS AT THIS TIME, NSR ON CM, OTHER VSS, PREVIOUS RIGHT CT SITE AND DRSG C/D/I, RIGHT POSTERIOR CHEST INCISION SITE DRSG C/D/I, SCD/ARON HOSE AND NON-SLIP SOCKS ON BLE, LEFT FA PIV SL, FALL PRECAUTIONES REVIEWED WITH PT, SAFTEY MEASURES IN PLACE, CALL LIGHT WITHIN REACH, WILL CONTINUE TO MONITOR
--- NOTE | 2019-02-03 21:00 | NUR ---
ASSISTED PT TO BATHROOM, PT STATED HE HAD A BM BUT FLUSHED TOILET PRIOR TO NURSE SEEING BM, PT ABULATED BACK TO BED WITH MINIMAL ASSIST, REPOSITIONED FOR COMFORT, NSR ON CM, OTHER VSS, MEDS GIVEN PER ORDERS/MAR, TABBY CONTINUE TO MONITOR
--- NOTE | 2019-02-03 23:00 | NUR ---
REASSESSMENT COMPLETE SEE FLOW SHEET, NO ACUTE CHANGE, PT DENIES PAIN OR NEEDS, CLEAR YELLOW VOID IN URINAL, NSR ON CM, OTHER VSS, WILL CONTINUE TO MONITOR
[2019-02-04] VITALS (16 sets, daily range): BP systolic 114–141; BP diastolic 53–74
--- NOTE | 2019-02-04 03:00 | NUR ---
REASSESSMENT COMPLETED SEE FLOW SHEET, NO ACUTE CHANGES NOTED, PT RESTING COMFORTABLY WITH EYES CLOSED, WAKES EASY WHEN NURSE ENTERS ROOM, DENIES PAIN OR NEEDS, NSR ON CM, OTHER VSS, ALL DRSG'S C/D/I, WILL CONTINUE TO MONITOR
[2019-02-04 04:23] LABS: BASOPHILS 0.2 % (0-2); EOSINOPHILS 5.3 % (0-7); HEMATOCRIT 30.5 % (42.0-54.0); HEMOGLOBIN 10.6 g/dL (13.5-17.5); IMMATURE GRANULOCYTES 0.3 % (0-5); LYMPHOCYTES 8.8 % (15-50); MCH 31.4 pg (26.0-34.0); MCHC 34.8 g/dL (31.0-37.0); MCV 90.2 fL (80.0-100.0); MONOCYTES 14.7 % (2-11); NEUTROPHILS 70.7 % (40-80); PLATELET COUNT 260 10x3/uL (130-400); RBC 3.38 10x6/uL (4.20-6.10); RDW 13.2 % (11.5-14.5)
[2019-02-04 04:25] LABS: CALC OSMOLALITY 274 mosm/kg (275-300); CALCIUM 8.8 mg/dL (8.5-10.1); CARBON DIOXIDE 28.7 mmol/L (21.0-32.0); CHLORIDE - SERUM 101 mmol/L (98-107); CREATININE - SERUM 0.6 mg/dL (0.6-1.3); GLUCOSE 111 mg/dL (74-106); POTASSIUM - SERUM 4.5 mmol/L (3.5-5.1); SODIUM 136 mmol/L (136-145); UREA NITROGEN 18 mg/dL (7-18); eGFR NON AFRICAN AMERICAN > 90 mL/min (90-120)
[2019-02-04] MEDS ORDERED: LOPRESSOR25 MG PO (08:58)
[2019-02-04] MEDS ORDERED: ASPIRIN EC81 M1 PO (08:59)
[2019-02-04] MEDS ORDERED: HYDROCODON-ACE1 EAC7 PO (09:04)
[2019-02-04] MEDS ORDERED: Chloraseptic Spray [ TOPICAL (09:04)
--- NOTE | 2019-02-04 10:54 | NUR ---
PT BEING DISCHARGED HOME. CARDIOLOGY APPOINTMENT SET UP FOR 03/03/19 AT 1045AM. APPOINTMENT WITH DR. LINDSEY ON 02/05/19 AT 1100.
[2019-02-04] MEDS ORDERED: AMIODARONE HCL200 MG PO (11:36)
[2019-02-04] MEDS ORDERED: CARDIZEM SR90 MG PO (11:37)
--- NOTE | 2019-02-04 12:06 | NUR ---
APPOINTMENT SET UP WITH DR. COLEMAN ON 02/18/19 AT 1130.
--- NOTE | 2019-02-04 12:31 | NUR ---
PIV ON LEFT FOREARM DC'D WITH CATHETER TIP INTACT. DISCHARGE INSTRUCTIONS REVIEWED WITH PT AND SPOUSE. PERSONAL BELONGINGS SENT HOME WITH PATIENT. AMBULATED TO PERSONAL VEHICLE.
--- NOTE | 2019-02-04 15:56 | MORECARE ---
CASE MANAGEMENT DISCHARGE SUMMARY PATIENT: ESTEBAN GRANT UNIT: [id number] ADM DATE: 01/28/19 AGE: 78 : 38 SEX: M [facility] AUTHOR: FREDA,DOC PHYSICIAN: REFERRING PHYSICIAN: ARELY CAMACHO MD DATE OF SERVICE: 02/04/19 Discharge Plan Patient Name: ESTEBAN GRANT Facility: [facility]:[place] : 1940 Planned Disposition: Home Anticipated Discharge Date: 01/31/19 Discharge Date: 02/04/2019 Expected LOS: 3 Initial Reviewer: [email or web address] Initial Review Date: 01/28/2019 Generated: 02/04/19 4:56 pm Comments DCP- Discharge Planning Updated by [email or web address]: Sue Ramirez on 02/04/19 2:[address] Patient Name: ESTEBAN GRANT Encounter No: [id number] : 1940 Primary Insurance: [facility] MEDICARE SOLUTIONS Anticipated DC Date: 01-31-2019 Planned Disposition: Home External Planned Provider: : sil CORTES explained and served 02/04/19 @ 1011 DCP follow-up note: Patient and family in agreement with discharge plan. No changes to plan. Case management will follow and assist as needed. Suedottie Ramirez DCP- Discharge Planning Updated by [email or web address]: Janice Llanos on 01/29/19 12:[address] Patient Name: ESTEBAN GRANT Admission Status: Elective Accout number: [id number] Admission Date: 01-28-2019 : 1940 Admission Diagnosis: Attending: ARELY CAMACHO Current LOS: 1 Anticipated DC Date: 01-31-2019 Planned Disposition: Home Primary Insurance: [facility] MEDICARE SOLUTIONS Discharge Planning Comments: CM met with patient to complete initial dc planning assessment. CM educated patient on the CM role and verbal consent given by patient to complete assessment. CM verified patient's address, phone number, and emergency contact phone numbers. Patient lives at home with his and was independent prior to admission. At discharge patient is unsure of his needs. He reported it took him one hour to sit up on the side of the bed and recover afterwards. Once he starts to get up with therapy he will better know what his dc needs are going to be. CM discussed availability of home health, rehab services, and medical equipment. Patient reports if he goes home his or son will transport him home at time of discharge. CM will assist with arranging rehab/skilled or home health if needed at discharge. CM will continue to follow and will assist as needed with dc plans/needs Aircraft Worker: Janice Llanos RN, [facility] DCPIA - Discharge Planning Initial Assessment Updated by [email or web address]: Janice Llanos on 01/29/19 12:57 pm * Is the patient Alert and Oriented? Yes * How many steps to enter\exit or inside your home? none * PCP Dr. Cox * Pharmacy [facility] * Preadmission Environment Home with Family * ADLs Independent * Equipment None * List name and contact numbers for known caregivers / representatives who currently or will assist patient after discharge: [email or web address] [facility] - [phone] * Verbal permission to speak to the caregivers and representatives has been obtained from the patient. Yes * Community resources currently utilized None * Additional services required to return to the preadmission environment? No * Can the patient safely return to the preadmission environment? Yes * Has this patient been hospitalized within the prior 30 days at any hospital? No Coverage Notice Reviewer: [id number] Nasima Ramirez Notice Issued Date-Time: 02/04/2019 10:11 Notice Type: IM Discharge Notice Notice Delivered To: Patient Relationship to Patient: Self Transition Mgr Rn Name: Delivery Method: HAND - Hand Delivered Monie Days: Prior Verbal Notification: Recipient Understood Notice: Yes Recipient Signature: Yes Med Rec Note Co-signed by Attending: Coverage Notice Comment: Last DP export: 01/29/19 12:09 pm Patient Name: ESTEBAN GRANT Page [id number] at 1556 All edits/amendments must be made on the electronic document DICTATION DATE: 02/04/193 HANDKERCHIEF SAMPLE CLERK: VALE 02/04/191555 RPT#: [id number] DC DATE:02/04/19 STATUS: DIS IN [facility] [address] [place] [address] END OF REPORT
== END 2019-02-04 12:33 | disposition home or self-care (01) | DRG 164 ==
LOC: D.SDCHOLD 14:45 → D.CVICU 01-28 07:00 → D.SDCHOLD 01-28 10:30 → D.CVICU 01-28 14:18 → D.SDCHOLD 01-28 14:45 → D.CVICU 02-04 12:33
PROVIDERS: Internal Medicine Cardiovascular Disease; Internal Medicine Nephrology; ADMIT Thoracic Surgery (Cardiothoracic Vascular Surgery); ATTEND Thoracic Surgery (Cardiothoracic Vascular Surgery)
PROC: 07T70ZZ Resection of Thorax Lymphatic, Open Approach (ICD-10-PCS; 2019-01-28)
PROC: 0BJ08ZZ Inspection of Tracheobronchial Tree, Via Natural or Artificial Opening Endoscopic (ICD-10-PCS; 2019-01-28)
PROC: 0BTD0ZZ Resection of Right Middle Lung Lobe, Open Approach (ICD-10-PCS; principal; 2019-01-28 10:30)
DX: C34.2 Malignant neoplasm of middle lobe, bronchus or lung (principal); J95.812 Postprocedural air leak; I47.1 Supraventricular tachycardia; E87.1 Hypo-osmolality and hyponatremia; I10 Essential (primary) hypertension; E78.5 Hyperlipidemia, unspecified; Z85.46 Personal history of malignant neoplasm of prostate; K59.00 Constipation, unspecified; I48.0 Paroxysmal atrial fibrillation

== ENCOUNTER 2019-02-04 22:35 | Emergency (ER) | payer MEDICARE ==
[~2019-02-04] VITALS: Ht 182.9 cm; Wt 81.8 kg
[~2019-02-04 22:35] MED LIST changes: +AMIODARONE HCL200 MG PO; +ASPIRIN EC81 M1 PO; +CARDIZEM SR90 MG PO; +Chloraseptic Spray [ TOPICAL; +HYDROCODON-ACE1 EAC7 PO; +LOPRESSOR25 MG PO
[2019-02-04 22:41] VITALS: Ht 182.9 cm; Wt 81.8 kg
[2019-02-04 23:03] LABS: BASOPHILS 0.4 % (0-2); EOSINOPHILS 5.9 % (0-7); HEMATOCRIT 33.7 % (42.0-54.0); HEMOGLOBIN 11.8 g/dL (13.5-17.5); IMMATURE GRANULOCYTES 0.3 % (0-5); LYMPHOCYTES 8.1 % (15-50); MCH 31.9 pg (26.0-34.0); MCV 91.1 fL (80.0-100.0); MEAN PLATELET VOLUME 8.9 fL (7.4-10.4); MONOCYTES 13.9 % (2-11); NEUTROPHILS 71.4 % (40-80); RDW 13.5 % (11.5-14.5); WBC 7.1 10x3/uL (4.8-10.8)
[2019-02-04 23:05] LABS: PLATELET COUNT 331 10x3/uL (130-400)
[2019-02-04 23:17] LABS: APTT 31.3 SECONDS (22.8-39.4); INR 1.08 (0.85-1.17); PROTIME 13.5 SECONDS (11.6-15.0)
[2019-02-04 23:24] LABS: ALBUMIN 2.4 g/dL (3.4-5.0); ALKALINE PHOSPHATASE 199 U/L (46-116); ALT (SGPT) 95 U/L (10-68); BILIRUBIN - TOTAL 0.56 mg/dL (0.2-1.3); CALC OSMOLALITY 270 mosm/kg (275-300); CALCIUM 9.3 mg/dL (8.5-10.1); CARBON DIOXIDE 28.9 mmol/L (21.0-32.0); CHLORIDE - SERUM 99 mmol/L (98-107); GLUCOSE 123 mg/dL (74-106); POTASSIUM - SERUM 4.5 mmol/L (3.5-5.1); PROTEIN - SERUM 6.5 g/dL (6.4-8.2); SODIUM 134 mmol/L (136-145); UREA NITROGEN 19 mg/dL (7-18); eGFR NON AFRICAN AMERICAN 86 mL/min (90-120)
[2019-02-04 23:25] LABS: CREATININE - SERUM 0.9 mg/dL (0.6-1.3)
[2019-02-04 23:38] LABS: CKMB 2.5 U/L (0.0-3.6); CREATINE KINASE 77 UL (21-232); MAGNESIUM - SERUM 1.8 mg/dL (1.8-2.4); TROPONIN-I 0.018 ng/mL (0.000-0.060)
[2019-02-05 00:11] VITALS: BP 179/91
== END 2019-02-05 00:08 | disposition home or self-care (01) ==
LOC: D.ER 22:35
PROVIDERS: Family Medicine
DX: I48.0 Paroxysmal atrial fibrillation (principal); R94.5 Abnormal results of liver function studies

== ENCOUNTER 2019-02-27 00:26 | Emergency (ER) | payer MEDICARE ==
[~2019-02-27] VITALS: Ht 182.9 cm; Wt 79.5 kg
[2019-02-27 00:33] VITALS: Ht 182.9 cm; Wt 79.5 kg
[2019-02-27] MEDS ORDERED: ELIQUIS5 MG PO (00:45)
[2019-02-27 01:08] LABS: BASOPHILS 0.6 % (0-2); EOSINOPHILS 5.6 % (0-7); HEMATOCRIT 35.9 % (42.0-54.0); HEMOGLOBIN 12.4 g/dL (13.5-17.5); IMMATURE GRANULOCYTES 0.2 % (0-5); LYMPHOCYTES 21.8 % (15-50); MCH 30.8 pg (26.0-34.0); MCHC 34.5 g/dL (31.0-37.0); MCV 89.3 fL (80.0-100.0); MEAN PLATELET VOLUME 9.2 fL (7.4-10.4); MONOCYTES 11.2 % (2-11); NEUTROPHILS 60.6 % (40-80); RBC 4.02 10x6/uL (4.20-6.10); RDW 13.8 % (11.5-14.5); WBC 4.8 10x3/uL (4.8-10.8)
[2019-02-27 01:09] LABS: PLATELET COUNT 207 10x3/uL (130-400)
[2019-02-27 01:17] LABS: APTT 35.1 SECONDS (22.8-39.4); INR 1.14 (0.85-1.17); PROTIME 14.1 SECONDS (11.6-15.0)
[2019-02-27 01:18] LABS: APPEARANCE CLOUDY (CLEAR)
[2019-02-27 01:23] LABS: BACTERIA FEW /hpf (NONE SEEN); EPITHELIAL CELLS 0-5 /hpf (0-5); RED CELLS - URINE >50 /hpf (0-5)
[2019-02-27 01:24] LABS: COLOR RED (YELLOW)
[2019-02-27 01:25] LABS: ALBUMIN 3.4 g/dL (3.4-5.0); ANION GAP 13.1 mmol/L (8-16); BILIRUBIN - TOTAL 0.33 mg/dL (0.2-1.3); CALCIUM 9.1 mg/dL (8.5-10.1); CARBON DIOXIDE 27.6 mmol/L (21.0-32.0); CREATININE - SERUM 1.1 mg/dL (0.6-1.3); POTASSIUM - SERUM 3.7 mmol/L (3.5-5.1); PROTEIN - SERUM 6.8 g/dL (6.4-8.2)
[2019-02-27 05:05] VITALS: BP 183/77
== END 2019-02-27 05:06 | disposition short-term general hospital (02) ==
LOC: D.ER 00:26
PROVIDERS: Family Medicine
DX: R31.9 Hematuria, unspecified (principal); I48.2 Chronic atrial fibrillation; Z79.01 Long term (current) use of anticoagulants; I82.90 Acute embolism and thrombosis of unspecified vein

== ENCOUNTER → 2019-03-19 12:30 | Outpatient (CLI) | payer MEDICARE ==
[2019-02-27 00:33] VITALS: BMI 23.8
[~2019-03-19 12:30] MED LIST changes: +BACTRIM 400-801 TAB PO; +CARDIZEM60 MG PO; +CATAPRES0.1 MG PO; +ELIQUIS5 MG PO; +LOTREL 5/10 MG1 CAP PO; +MEGACE40 MG PO
== END | disposition home or self-care (01) ==
LOC: D.RAD 12:30
PROVIDERS: ATTEND Thoracic Surgery (Cardiothoracic Vascular Surgery)
DX: C34.90 Malignant neoplasm of unspecified part of unspecified bronchus or lung (principal)

== ENCOUNTER 2019-03-21 07:34 | Day surgery (SDC) | payer MEDICARE ==
[~2019-03-21] VITALS: Ht 182.9 cm; Wt 82.1 kg
[~2019-03-21 07:34] MED LIST changes: -CARDIZEM60 MG PO; -CATAPRES0.1 MG PO; -LOTREL 5/10 MG1 CAP PO; -MEGACE40 MG PO
[2019-03-21 08:20] LABS: BASOPHILS 0.3 % (0-2); EOSINOPHILS 2.3 % (0-7); HEMATOCRIT 33.3 % (42.0-54.0); HEMOGLOBIN 11.1 g/dL (13.5-17.5); IMMATURE GRANULOCYTES 0.1 % (0-5); LYMPHOCYTES 11.7 % (15-50); MCH 29.7 pg (26.0-34.0); MCHC 33.3 g/dL (31.0-37.0); MEAN PLATELET VOLUME 9.2 fL (7.4-10.4); MONOCYTES 11.6 % (2-11); RBC 3.74 10x6/uL (4.20-6.10); RDW 15.5 % (11.5-14.5); WBC 7.5 10x3/uL (4.8-10.8)
[2019-03-21 08:21] LABS: PLATELET COUNT 346 10x3/uL (130-400)
[2019-03-21 08:37] LABS: ANION GAP 14.3 mmol/L (8-16); CALCIUM 9.6 mg/dL (8.5-10.1); CARBON DIOXIDE 26.8 mmol/L (21.0-32.0); CREATININE - SERUM 1.4 mg/dL (0.6-1.3); POTASSIUM - SERUM 5.1 mmol/L (3.5-5.1)
[2019-03-21] MEDS ORDERED: CARDIZEM60 MG PO (08:52)
[2019-03-21] MEDS ORDERED: MEGACE40 MG PO (08:52)
[2019-03-21 09:06] VITALS: BP 176/79; Ht 182.9 cm; Wt 82.1 kg
--- NOTE | 2019-03-21 12:29 | NUR ---
CARE TO SERENA WADE @5304
--- NOTE | 2019-03-25 14:43 | OP ---
PATIENT NAME: ESTEBAN GRANT MEDICAL RECORD: [id number] :[birth year] LOCATION:[facility] ADMISSION DATE: SURGEON: JULIUS JONES MD DATE OF OPERATION: 03/21/2019 PREOPERATIVE DIAGNOSIS: Lung cancer, in need of IV access for chemotherapy. POSTOPERATIVE DIAGNOSIS: Lung cancer, in need of IV access for chemotherapy. PROCEDURES: 1. Placement of left infraclavicular PowerPort under fluoroscopic guidance. 2. Immediate surgeon interpretation of the fluoroscopic images. SURGEON: Julius Jones MD TELEPHONE MESSENGER: None. BLOOD LOSS: Minimal. ANESTHESIA: General. COMPLICATIONS: None. The risks, possible complications, and alternatives to the procedure were discussed with the patient. He elects to proceed. The discussion specifically included, but was not limited to, bleeding requiring emergency reoperation, infection, the fact that the port could flip and could become nonfunctional. No radiologist was present for this procedure. Static fluoroscopic images were obtained and are kept in the PACS system. The surgeon interpretation of the radiographic images is dictated within the body of this operative note. OPERATIVE COURSE: The patient was conveyed to the operating room electively on 03/21/2019. General anesthesia was induced by the anesthesia staff. The patient's left neck and left chest were sterilely prepped and draped. Under ultrasonographic guidance, I percutaneously accessed the left internal jugular vein in an antegrade fashion. A guidewire passed easily. This was visualized under fluoroscopy. A counterincision was accomplished in the left anterior superior infraclavicular chest. I dissected down to the pectoralis muscle. I then fashioned a pocket in a caudad direction. I then removed some of the adipose tissue from within the pocket in order to allow for easier access. I then tunneled a PowerPort catheter from the chest incision to the neck incision. Over the wire, a dilator sheath was advanced. This was advanced under fluoroscopy. The dilator and wire were removed. Through the sheath, I advanced the PowerPort catheter. Under fluoroscopy, I pulled it back so that it was at the cavoatrial junction. The catheter was cut. It was attached to PowerPort. The locking device was firmly engaged. The port was then placed in the pocket. Three-point fixation with 3-0 Prolenes was performed. This is to prevent the port from flipping. I irrigated in the subcutaneous pocket. There was no bleeding. I closed the pocket with interrupted 3-0 Vicryl for the deep dermis as well as a OPERATIVE REPORT [id number] ESTEBAN GRANT running intracuticular 3-0 Vicryl for the skin. The neck incision was closed with interrupted intracuticular 3-0 Vicryls. Benzoin and Steri-Strips were applied. I then percutaneously accessed the port. It accessed easily. It flushed easily and aspirated dark, nonpulsatile blood. I then de-accessed the port. The patient was then conveyed to the post-anesthesia care unit, where he was in stable condition. TRANSINT:[id number] Voice Confirmation ID: [id number] DOCUMENT ID: [id number] JULIUS JONES MD at 1443 CC: [id number] DICTATION DATE: 03/21/191955 QUALITY AUDIT REPRESENTATIVE: 03/22/19 0123 [facility] 03/21/19 [id number] [place] [address]
== END 2019-03-21 14:30 | disposition home or self-care (01) ==
LOC: D.OPS 07:34 → D.PAN 10:15 → D.OPS 14:30
PROVIDERS: Anesthesiology; ATTEND Surgery
DX: C34.90 Malignant neoplasm of unspecified part of unspecified bronchus or lung (principal); Z01.812 Encounter for preprocedural laboratory examination

== ENCOUNTER 2019-04-06 16:33 | Emergency (ER) | payer MEDICARE ==
[~2019-04-06] VITALS: Ht 182.9 cm; Wt 75.0 kg
[~2019-04-06 16:33] MED LIST changes: +CARDIZEM60 MG PO; +MEGACE40 MG PO
[2019-04-06 16:38] VITALS: Ht 182.9 cm; Wt 75.0 kg
[2019-04-06] MEDS ORDERED: CATAPRES0.1 MG PO (16:40)
[2019-04-06 18:28] LABS: BASOPHILS 0.2 % (0-2); EOSINOPHILS 4.7 % (0-7); HEMATOCRIT 33.9 % (42.0-54.0); HEMOGLOBIN 11.6 g/dL (13.5-17.5); LYMPHOCYTES 16.5 % (15-50); MCH 29.9 pg (26.0-34.0); MCHC 34.2 g/dL (31.0-37.0); MCV 87.4 fL (80.0-100.0); MEAN PLATELET VOLUME 10.3 fL (7.4-10.4); NEUTROPHILS 75.6 % (40-80); PLATELET COUNT 159 10x3/uL (130-400); RBC 3.88 10x6/uL (4.20-6.10); RDW 16.2 % (11.5-14.5); WBC 5.3 10x3/uL (4.8-10.8)
[2019-04-06 18:42] LABS: ALBUMIN 3.3 g/dL (3.4-5.0); ALKALINE PHOSPHATASE 78 U/L (46-116); ALT (SGPT) 26 U/L (10-68); BILIRUBIN - TOTAL 0.38 mg/dL (0.2-1.3); CALC OSMOLALITY 280 mosm/kg (275-300); CALCIUM 9.2 mg/dL (8.5-10.1); CARBON DIOXIDE 24.6 mmol/L (21.0-32.0); CHLORIDE - SERUM 104 mmol/L (98-107); GLUCOSE 113 mg/dL (74-106); MAGNESIUM - SERUM 2.1 mg/dL (1.8-2.4); POTASSIUM - SERUM 3.7 mmol/L (3.5-5.1); PROTEIN - SERUM 6.8 g/dL (6.4-8.2); SODIUM 139 mmol/L (136-145); UREA NITROGEN 17 mg/dL (7-18); eGFR NON AFRICAN AMERICAN 76 mL/min (90-120)
[2019-04-06] MEDS ORDERED: LOTREL 5/10 MG1 CAP PO (21:01)
[2019-04-06 21:43] VITALS: BP 157/77
== END 2019-04-06 21:43 | disposition home or self-care (01) ==
LOC: D.ER 16:33
PROVIDERS: Emergency Medicine
DX: I10 Essential (primary) hypertension (principal); Z85.118 Personal history of other malignant neoplasm of bronchus and lung; Z85.46 Personal history of malignant neoplasm of prostate

== ENCOUNTER → 2019-06-05 11:06 | Outpatient (CLI) | payer MEDICARE ==
[2019-04-06 16:38] VITALS: BMI 22.4
[~2019-06-05 11:06] MED LIST changes: +CATAPRES0.1 MG PO; +LOTREL 5/10 MG1 CAP PO
== END | disposition home or self-care (01) ==
LOC: D.HCCECHO 11:06 → D.HCCARDIO 11:30
PROVIDERS: ATTEND Internal Medicine Cardiovascular Disease
DX: I48.91 Unspecified atrial fibrillation (principal)

== ENCOUNTER → 2019-06-18 10:04 | Outpatient (CLI) | payer MEDICARE ==
[2019-04-06 16:38] VITALS: BMI 22.4
== END | disposition home or self-care (01) ==
LOC: D.RAD 10:04
PROVIDERS: ATTEND Thoracic Surgery (Cardiothoracic Vascular Surgery)
DX: C34.90 Malignant neoplasm of unspecified part of unspecified bronchus or lung (principal)

== ENCOUNTER → 2019-08-14 13:41 | Outpatient (CLI) | payer MEDICARE ==
[2019-04-06 16:38] VITALS: BMI 22.4
[~2019-08-14 13:41] MED LIST changes: +ASPIRIN81 MG PO; +COLACE100 MG PO; +FERROUS SULFAT325 MG PO; +PROTONIX40 MG PO
== END | disposition home or self-care (01) ==
LOC: D.LAB 13:00 → D.CT 13:41
PROVIDERS: ATTEND Internal Medicine Hematology & Oncology
DX: C34.90 Malignant neoplasm of unspecified part of unspecified bronchus or lung (principal); Z51.11 Encounter for antineoplastic chemotherapy; W19.XXXA Unspecified fall, initial encounter

== ENCOUNTER 2019-08-19 20:53 | Observation (INO) | payer MEDICARE ==
[~2019-08-19] VITALS: Ht 182.9 cm; Wt 70.3 kg
[~2019-08-19 20:53] MED LIST changes: -ASPIRIN81 MG PO; -COLACE100 MG PO; -FERROUS SULFAT325 MG PO; -PROTONIX40 MG PO
[2019-08-19] MEDS ORDERED: ASPIRIN81 MG PO (21:03)
[2019-08-19 21:20] LABS: BASOPHILS 0.1 % (0-2); EOSINOPHILS 0.1 % (0-7); HEMATOCRIT 24.3 % (42.0-54.0); HEMOGLOBIN 8.6 g/dL (13.5-17.5); IMMATURE GRANULOCYTES 0.1 % (0-5); LYMPHOCYTES 3.4 % (15-50); MCH 31.9 pg (26.0-34.0); MCHC 35.4 g/dL (31.0-37.0); MEAN PLATELET VOLUME 8.5 fL (7.4-10.4); NEUTROPHILS 89.3 % (40-80); RDW 14.5 % (11.5-14.5); WBC 6.7 10x3/uL (4.8-10.8)
[2019-08-19 21:23] LABS: PLATELET COUNT 235 10x3/uL (130-400)
[2019-08-19 21:26] LABS: CALC OSMOLALITY 264 mosm/kg (275-300); CALCIUM 8.9 mg/dL (8.5-10.1); CARBON DIOXIDE 28.9 mmol/L (21.0-32.0); CHLORIDE - SERUM 92 mmol/L (98-107); CREATININE - SERUM 0.8 mg/dL (0.6-1.3); GLUCOSE 153 mg/dL (74-106); POTASSIUM - SERUM 3.2 mmol/L (3.5-5.1); SODIUM 130 mmol/L (136-145); UREA NITROGEN 14 mg/dL (7-18); eGFR NON AFRICAN AMERICAN > 90 mL/min (90-120)
[2019-08-19 21:31] LABS: APPEARANCE CLEAR (CLEAR); BILIRUBIN NEGATIVE (NEGATIVE); COLOR YELLOW (YELLOW); GLUCOSE 50 mg/dL (NEGATIVE); KETONE NEGATIVE (NEGATIVE); NITRITE NEGATIVE (NEGATIVE); PROTEIN 1+ mg/dL (NEGATIVE); UROBILINOGEN NORMAL (NORMAL)
[2019-08-19 21:34] LABS: WHITE CELLS - URINE 0-5 /hpf (NEGATIVE)
[2019-08-19 21:35] LABS: BACTERIA FEW /hpf (NEGATIVE); EPITHELIAL CELLS 0-5 /hpf (0-5); MUCUS >1+ /lpf (NONE SEEN)
[2019-08-19 21:41] LABS: ALBUMIN 2.4 g/dL (3.4-5.0); ALKALINE PHOSPHATASE 77 U/L (46-116); ALT (SGPT) 19 U/L (10-68); AMYLASE - SERUM 20 U/L (25-115); BILIRUBIN - TOTAL 0.56 mg/dL (0.2-1.3); CKMB 1.9 U/L (0.0-3.6); CREATINE KINASE 55 UL (21-232); MAGNESIUM - SERUM 1.7 mg/dL (1.8-2.4); PROTEIN - SERUM 6.1 g/dL (6.4-8.2)
[2019-08-19 21:42] LABS: LIPASE 33 U/L (73-393); TROPONIN-I < 0.017 ng/mL (0.000-0.060)
[2019-08-19 22:00] VITALS: BP 115/58
[2019-08-19 22:30] VITALS: BP 104/59
[2019-08-20 00:11] VITALS: BP 120/65; BMI 21.0
--- NOTE | 2019-08-20 00:34 | NUR ---
RECEIVED PT FROM ER. A/O WITH NO SIGNS OF DISTRESS. CLEAN/DRY DRESSING TO THE LT CHEST PORT. MIRIAM ALARM ON. DENIES NO NEEDS AT THIS TIME. WILL MONITOR.
[2019-08-20 06:07] LABS: BASOPHILS 0.2 % (0-2); EOSINOPHILS 0.4 % (0-7); HEMATOCRIT 23.1 % (42.0-54.0); HEMOGLOBIN 8.2 g/dL (13.5-17.5); IMMATURE GRANULOCYTES 0.4 % (0-5); LYMPHOCYTES 8.1 % (15-50); MCH 31.5 pg (26.0-34.0); MCHC 35.5 g/dL (31.0-37.0); MCV 88.8 fL (80.0-100.0); MEAN PLATELET VOLUME 8.7 fL (7.4-10.4); MONOCYTES 6.9 % (2-11); PLATELET COUNT 229 10x3/uL (130-400); RDW 14.6 % (11.5-14.5); WBC 5.2 10x3/uL (4.8-10.8)
[2019-08-20 06:33] LABS: ALKALINE PHOSPHATASE 69 U/L (46-116); BILIRUBIN - TOTAL 0.35 mg/dL (0.2-1.3); CALC OSMOLALITY 266 mosm/kg (275-300); CHLORIDE - SERUM 98 mmol/L (98-107); CREATININE - SERUM 0.6 mg/dL (0.6-1.3); GLUCOSE 117 mg/dL (74-106); MAGNESIUM - SERUM 1.6 mg/dL (1.8-2.4); PROTEIN - SERUM 5.1 g/dL (6.4-8.2); SODIUM 132 mmol/L (136-145); UREA NITROGEN 15 mg/dL (7-18); eGFR NON AFRICAN AMERICAN > 90 mL/min (90-120)
[2019-08-20 06:35] LABS: ALT (SGPT) 14 U/L (10-68)
--- NOTE | 2019-08-20 07:29 | NUR ---
PT K+ IS 3.0 PT ON EP REPLACE K+ THROUGH IV
--- NOTE | 2019-08-20 07:35 | NUR ---
PT MAG IS 1.6 REPLACE MAGNESIUM WELL. CONTINUE WITH PLAN OF CARE
--- NOTE | 2019-08-20 07:40 | NUR ---
PT LYING IN BED RESTING, PT HAS DRY COUGH WHEEZING IN UPPER LOBES, PLACED INCENTIVE SPIROMETER IN ROOM PT MAG 1.6 K+ 3.0 FOLLOW PROTOCOL REPLACING ELECTROLYTES. CONTINUE WITH PLAN OF CARE
[2019-08-20 08:09] VITALS: BP 113/64
[2019-08-20 12:52] LABS: % SATURATION 7 % (15-55); IRON 11 ug/dl (35-150); TOTAL IRON BIND CAPACITY 140 ug/dl (260-445); UNSAT IRON BIND CAPACITY 129 ug/dl (150-375)
--- NOTE | 2019-08-20 13:23 | NUR ---
PT STATES HE IS NOT CONSTIPATED, HE JUST HAD DIARRHEA FOR 20MINS IN RESTROOM AND HAS REFUSED MAG CITRATE. CONTINUE WITH PLAN OF CARE
--- NOTE | 2019-08-20 15:32 | NUR ---
PT LYING IN BED HAS 1 UNIT OF BLOOD ORDERED, NOT READY YET, PT SPOUSE CALLED AND STATED SHE WOULD LIKE HIM TO HAVE REHAB BEFORE COMING HOME, ADVISED THAT NEEDS TO BE DISCUSSED WITH CASE MGMT WHO WILL BE BACK TOMORROW. PT IS UP ADLIB TO RESTROOM CONTINUE WITH PLAN OF CARE
[2019-08-20 15:49] VITALS: BP 153/81
--- NOTE | 2019-08-20 16:55 | NUR ---
STARTED T UNIT OF BLOOD, PT LYING IN BED NO S/SX OF DISTRESS, CL IN REACH CONTINUE WITH PLAN OF CARE
--- NOTE | 2019-08-20 18:10 | NUR ---
I have reviewed this patient and I concur with the Shift Assessment completed by the Licensed Practical Nurse today this shift.
--- NOTE | 2019-08-20 19:40 | NUR ---
LYING IN BED WITH EYES OPEN AND TELEVISION ON, BLOOD PRODUCTS ARE INFUSING VIA ORDERS AND PUMP TO LEFT CHEST PORT. RESP EVEN AND UNLABORED ON ROOM AIR. ABLE TO VOICE ALL NEEDS. DENIES ANY PAIN AT THIS TIME. WILL NOTE ANY CHANGE
[2019-08-21] VITALS: BP 131/61
--- NOTE | 2019-08-21 02:52 | NUR ---
I have reviewed this patient and I concur with the Shift Assessment completed by the Licensed Practical Nurse today this shift.
[2019-08-21 05:17] LABS: BASOPHILS 0.3 % (0-2); EOSINOPHILS 1.3 % (0-7); HEMATOCRIT 27.7 % (42.0-54.0); HEMOGLOBIN 9.8 g/dL (13.5-17.5); IMMATURE GRANULOCYTES 0.3 % (0-5); LYMPHOCYTES 7.5 % (15-50); MCH 31.3 pg (26.0-34.0); MCHC 35.4 g/dL (31.0-37.0); MCV 88.5 fL (80.0-100.0); MEAN PLATELET VOLUME 8.4 fL (7.4-10.4); MONOCYTES 6.1 % (2-11); NEUTROPHILS 84.5 % (40-80); PLATELET COUNT 268 10x3/uL (130-400); RDW 14.8 % (11.5-14.5)
[2019-08-21 05:28] LABS: RBC 3.13 10x6/uL (4.20-6.10); WBC 7.8 10x3/uL (4.8-10.8)
[2019-08-21 05:33] LABS: CALC OSMOLALITY 260 mosm/kg (275-300); CALCIUM 8.5 mg/dL (8.5-10.1); CARBON DIOXIDE 22.9 mmol/L (21.0-32.0); CHLORIDE - SERUM 97 mmol/L (98-107); CREATININE - SERUM 0.5 mg/dL (0.6-1.3); GLUCOSE 100 mg/dL (74-106); MAGNESIUM - SERUM 1.7 mg/dL (1.8-2.4); POTASSIUM - SERUM 3.3 mmol/L (3.5-5.1); SODIUM 130 mmol/L (136-145); UREA NITROGEN 12 mg/dL (7-18); eGFR NON AFRICAN AMERICAN > 90 mL/min (90-120)
--- NOTE | 2019-08-21 07:39 | NUR ---
RESTING IN BED. ALERT AND ORIENTED. LUNGS CLEAR BILATERALLY. HEART SOUNDS S1 AND S2 HEARD IN ALL ALBRIGHT. BOWEL SOUNDS ACTIVE X 4. LEFT CHEST PORT PATENT. SKIN INTACT WITHOUT REDNESS. MIRIAM ALARM WAIVER SIGNED. DENIES NEEDS. BED LOW. CALL UPTON AND PERSONAL ITEMS IN REACH. WILL CONTINUE TO MONITOR.
[2019-08-21 08:43] VITALS: BP 169/80
--- NOTE | 2019-08-21 08:57 | NUR ---
PATIENT ALREADY HAD EXTRA BAG OF FLUIDS HANGING IN ROOM DID NOT SEE. MARKED OFF MAR.
[2019-08-21 09:49] VITALS: Ht 182.9 cm; Wt 70.3 kg
--- NOTE | 2019-08-21 11:07 | NUR ---
COLACE, MIRALAX, AND DULCOLAX SUPPOSITORY ORDERED FOR PATIENT. LARGE LIQUID BM IN HAT IN TOILET. REFUSED MEDS. STOOL COLLECTED. WAITING CALL BACK FROM SENIOR MECHANICAL TECHNICIAN TO SEE IF OK TO ADD CDIFF TEST TO SAMPLE.
[2019-08-21 12:26] VITALS: BP 145/93
[2019-08-21] MEDS ORDERED: PROTONIX40 MG PO (13:39)
[2019-08-21] MEDS ORDERED: COLACE100 MG PO (13:39)
[2019-08-21] MEDS ORDERED: FERROUS SULFAT325 MG PO (13:40)
--- NOTE | 2019-08-21 14:59 | MORECARE ---
CASE MANAGEMENT DISCHARGE SUMMARY PATIENT: ESTEBAN GRANT UNIT: [id number] ADM DATE: 08/21/19 AGE: 78 : 38 SEX: M ROOM/BED: D.2218 AUTHOR: CHAITANYA BARBA PHYSICIAN: REFERRING PHYSICIAN: GRANT GUNTER MD DATE OF SERVICE: 08/21/19 Discharge Plan Patient Name: ESTEBAN GRANT [facility] [facility] 1940 Planned Disposition: Home Health Service Anticipated Discharge Date: Discharge Date: Expected LOS: Initial Reviewer: [email or web address] Initial Review Date: 08/20/2019 Generated: 08/21/19 3:59 pm DCPIA - Discharge Planning Initial Assessment Updated by [email or web address]: Katherin Mccarty on 08/21/19 2:58 pm * Is the patient Alert and Oriented? Yes * How many steps to enter\exit or inside your home? * PCP CÉSAR * Pharmacy [facility] [place] * Preadmission Environment Home with Family * ADLs Independent * Equipment Cane Rolling Walker * List name and contact numbers for known caregivers / representatives who currently or will assist patient after discharge: KENY [phone] * Verbal permission to speak to the caregivers and representatives has been obtained from the patient. N/A * Community resources currently utilized None * Additional services required to return to the preadmission environment? Yes * Can the patient safely return to the preadmission environment? Yes * Has this patient been hospitalized within the prior 30 days at any hospital? No Patient Name: ESTEBAN GRANT Page 48693 at 1459 All edits/amendments must be made on the electronic document DICTATION DATE: 08/21/191458 SR. MEDIA MANAGER: VALE 08/21/191458 RPT#: [id number] DC DATE: STATUS: ADM IN [facility] [address] [place] [address] END OF REPORT
--- NOTE | 2019-08-21 15:14 | MORECARE ---
CASE MANAGEMENT DISCHARGE SUMMARY PATIENT: ESTEBAN GRANT UNIT: [id number] ADM DATE: 08/21/19 AGE: 78 : 38 SEX: M ROOM/BED: D.2218 AUTHOR: FERDADOC PHYSICIAN: REFERRING PHYSICIAN: GRANT GUNTER MD DATE OF SERVICE: 08/21/19 Discharge Plan Patient Name: ESTEBAN GRANT Facility: [facility]:[place] : 1940 Planned Disposition: Home Health Service Anticipated Discharge Date: Discharge Date: Expected LOS: Initial Reviewer: [email or web address] Initial Review Date: 08/20/2019 Generated: 08/21/19 4:13 pm Comments DCP- Discharge Planning Updated by [email or web address]: Katherin Mccarty on 08/21/19 2:[address] Patient Name: ESTEBAN GRANT Admission Status: ER Accout number: [id number] Admission Date: 08-21-2019 : 1940 Admission Diagnosis: Attending: GRANT GUNTER Current LOS: 1 Anticipated DC Date: Planned Disposition: Home Health Service Primary Insurance: [facility] MEDICARE SOLUTIONS Discharge Planning Comments: CM met with patient to complete initial dc planning assessment. CM educated patient on the CM role and verbal consent given by patient to complete assessment. Patient lives at home with his where he is independent with his care. At discharge patient plans to return home and feels this is a safe discharge. CM discussed availability of home health, rehab services, and medical equipment. He would like home health. Gave him a pack to pick a [employer]. Patient has a walker and a cane at home. Patient denied known discharge needs at this time. CM will continue to follow and will assist as needed with dc plans/needs. Curtain Drier: Katherin Mccarty DCPIA - Discharge Planning Initial Assessment Updated by [email or web address]: Katherin Mccarty on 08/21/19 2:58 pm * Is the patient Alert and Oriented? Yes * How many steps to enter\exit or inside your home? * PCP LINDSEY * Pharmacy [facility] [place] * Preadmission Environment Home with Family * ADLs Independent * Equipment Cane Rolling Walker * List name and contact numbers for known caregivers / representatives who currently or will assist patient after discharge: KENY [phone] * Verbal permission to speak to the caregivers and representatives has been obtained from the patient. N/A * Community resources currently utilized None * Additional services required to return to the preadmission environment? Yes * Can the patient safely return to the preadmission environment? Yes * Has this patient been hospitalized within the prior 30 days at any hospital? No Last DP export: 08/21/19 1:59 Patient Name: ESTEBAN GRANT Page 71183 at 1514 All edits/amendments must be made on the electronic document DICTATION DATE: 08/21/191512 ORDER CONTROL CLERK BLOOD BANK: VALE 08/21/191512 RPT#: [id number] DC DATE: STATUS: ADM IN [facility] [address] [place] [address] END OF REPORT
--- NOTE | 2019-08-21 15:24 | MORECARE ---
CASE MANAGEMENT DISCHARGE SUMMARY PATIENT: ESTEBAN GRANT UNIT: [id number] ADM DATE: 08/21/19 AGE: 78 : 38 SEX: M ROOM/BED: D.2214 AUTHOR: FREDADOC PHYSICIAN: REFERRING PHYSICIAN: GRANT GUNTER MD DATE OF SERVICE: 08/21/19 Discharge Plan Patient Name: ESTEBAN GRANT Facility: [facility]:[place] : 1940 Planned Disposition: Home Health Service Anticipated Discharge Date: Discharge Date: Expected LOS: Initial Reviewer: [email or web address] Initial Review Date: 08/20/2019 Generated: 08/21/19 4:23 pm Comments DCP- Discharge Planning Updated by [email or web address]: Katherin Mccarty on 08/21/19 2:[address] Patient was going to wait for his to decide on what home health company he will use. I gave him my card and he will call me and let me know. He said it may take a while to decide. KE signed for hh but not sure what company. CM to follow and assist as needed DCP- Discharge Planning Updated by [id number]: Katherin Mccarty on 08/21/19 2:[address] Patient Name: ESTEBAN GRANT Admission Status: ER Accout number: [id number] Admission Date: 08-21-2019 : 1940 Admission Diagnosis: Attending: GRANT GUNTER Current LOS: 1 Anticipated DC Date: Planned Disposition: Home Health Service Primary Insurance: [facility] MEDICARE SOLUTIONS Discharge Planning Comments: CM met with patient to complete initial dc planning assessment. CM educated patient on the CM role and verbal consent given by patient to complete assessment. Patient lives at home with his where he is independent with his care. At discharge patient plans to return home and feels this is a safe discharge. CM discussed availability of home health, rehab services, and medical equipment. He would like home health. Gave him a pack to pick a company. Patient has a walker and a cane at home. Patient denied known discharge needs at this time. CM will continue to follow and will assist as needed with dc plans/needs. Link Trainer: Katherin Mccarty DCPIA - Discharge Planning Initial Assessment Updated by [email or web address]: Katherin Mccarty on 08/21/19 2:58 pm * Is the patient Alert and Oriented? Yes * How many steps to enter\exit or inside your home? * PCP CÉSAR * Pharmacy [facility] [place] * Preadmission Environment Home with Family * ADLs Independent * Equipment Cane Rolling Walker * List name and contact numbers for known caregivers / representatives who currently or will assist patient after discharge: KENY [phone] * Verbal permission to speak to the caregivers and representatives has been obtained from the patient. N/A * Community resources currently utilized None * Additional services required to return to the preadmission environment? Yes * Can the patient safely return to the preadmission environment? Yes * Has this patient been hospitalized within the prior 30 days at any hospital? No Last DP export: 08/21/19 2:14 Patient Name: ESTEBAN GRANT Page 41553 at 1524 All edits/amendments must be made on the electronic document DICTATION DATE: 08/21/191522 BRASSWIND INSTRUMENT REPAIRER: VALE 08/21/191522 RPT#: [id number] DC DATE: STATUS: ADM IN [facility] [address] [place] [address] END OF REPORT
--- NOTE | 2019-08-21 15:44 | NUR ---
DISCHARGE EDUCATION PROVIDED BOTH WRITTEN AND VERBAL. VERBALIZED UNDERSTANDING. DENIES QUESTIONS. LEFT CHEST PORT DEACCESSED. WAITING FOR TO COME FISH WORM GROWER. STATES "MIGHT BE A COUPLE OF HOURS."
--- NOTE | 2019-08-21 17:13 | MORECARE ---
CASE MANAGEMENT DISCHARGE SUMMARY PATIENT: ESTEBAN GRANT UNIT: [id number] ADM DATE: 08/21/19 AGE: 78 : 38 SEX: M ROOM/BED: D.2218 AUTHOR: CHAITANYA BARBA PHYSICIAN: REFERRING PHYSICIAN: GRANT GUNTER MD DATE OF SERVICE: 08/21/19 Discharge Plan Patient Name: ESTEBAN GRANT Facility: [facility]:[place] : 1940 Planned Disposition: Home Health Service Anticipated Discharge Date: Discharge Date: Expected LOS: Initial Reviewer: [email or web address] Initial Review Date: 08/20/2019 Generated: 08/21/19 6:13 pm Comments DCP- Discharge Planning Updated by [email or web address]: Елена Guo on 08/21/19 4:[address] Patient Name: ESTEBAN GRANT Admission Status: ER Accout number: [id number] Admission Date: 08-21-2019 : 1940 Admission Diagnosis: Attending: GRANT GUNTER Current LOS: 1 Anticipated DC Date: Planned Disposition: Home Health Service Primary Insurance: [facility] MEDICARE SOLUTIONS Discharge Planning Comments: CM RECEIVED A CALL FROM DR. LINDSEY, HE WOULD LIKE THE PATIENT TO GO TO REHAB. DOES NOT WANT THE PATIENT TO DISCHARGE TO HOME TODAY, DOESN'T THINK IT WILL BE A SAFE DISCHARGE. IT IS AFTER 5PM, WE WILL HAVE TO FOLLOW UP WITH THIS TOMORROW. Calender Runner: Елена Guo DCP- Discharge Planning Updated by [id number]: Katherin Mccarty on 08/21/19 2:[address] Patient was going to wait for his to decide on what home health company he will use. I gave him my card and he will call me and let me know. He said it may take a while to decide. KE signed for but not sure what company. CM to follow and assist as needed DCP- Discharge Planning Updated by [email or web address]: Katherin Mccarty on 08/21/19 2:[address] Patient Name: ESTEBAN GRANT Admission Status: ER Accout number: [id number] Admission Date: 08-21-2019 : 1940 Admission Diagnosis: Attending: GRANT GUNTER Current LOS: 1 Anticipated DC Date: Planned Disposition: Home Health Service Primary Insurance: [facility] MEDICARE SOLUTIONS Discharge Planning Comments: CM met with patient to complete initial dc planning assessment. CM educated patient on the CM role and verbal consent given by patient to complete assessment. Patient lives at home with his where he is independent with his care. At discharge patient plans to return home and feels this is a safe discharge. CM discussed availability of home health, rehab services, and medical equipment. He would like home health. Gave him a pack to pick a [employer]. Patient has a walker and a cane at home. Patient denied known discharge needs at this time. CM will continue to follow and will assist as needed with dc plans/needs. Calender Runner: Katherin Mccarty DCPIA - Discharge Planning Initial Assessment Updated by [email or web address]: Katherin Mccarty on 08/21/19 2:58 pm * Is the patient Alert and Oriented? Yes * How many steps to enter\exit or inside your home? * PCP LINDSEY * Pharmacy [facility] * Preadmission Environment Home with Family * ADLs Independent * Equipment Cane Rolling Walker * List name and contact numbers for known caregivers / representatives who currently or will assist patient after discharge: KENY [phone] * Verbal permission to speak to the caregivers and representatives has been obtained from the patient. N/A * Community resources currently utilized None * Additional services required to return to the preadmission environment? Yes * Can the patient safely return to the preadmission environment? Yes * Has this patient been hospitalized within the prior 30 days at any hospital? No Last DP export: 08/21/19 2:24 Patient Name: ESTEBAN GRANT Page [phone] at 1713 All edits/amendments must be made on the electronic document DICTATION DATE: 08/21/191712 AGRONOMIST: VALE 08/21/191712 RPT#: [id number] DC DATE: STATUS: ADM IN [facility] [address] [place] [address] END OF REPORT
--- NOTE | 2019-08-21 17:21 | NUR ---
OT NOTE: PT COMPLETED DYNAMIC ACTIVIES WITH SBA. PT COMPLETED HYGIENE TASKS WITH SBA.PT COMPLETED UE AROM AXS. [phone] THANK YOU, ADRIANA DE
--- NOTE | 2019-08-21 17:44 | NUR ---
SPOKE WITH PATIENT RE.. REHAB FOR GETTING STRONGER BEFORE DC HOME. ALSO INFORMED PATIENT OF CALL FROM DR. LINDSEY TO HOLD DC. PATIENT WISHES TO DC.
--- NOTE | 2019-08-21 17:48 | NUR ---
SPOKE WITH DR. GUNTER AND INFORMED HIM PATIENT WANTS TO DC. ORDERS RECIEVED AND INITIATED
--- NOTE | 2019-08-21 19:50 | NUR ---
FAMILY HERE AND WANT PT TO STAY HERE...STATE THEY CANNOT CARE FOR HIM AT HOME AND WANT HIM TO GO TO REHAB. CALLED DR GUNTER AND RECEIVED ORDER FOR PT TO STAY IF HE WOULD AGREE. PT REFUSES TO STAY AND INSISTS ON GOING HOME. FAMILY HERE YELLING AT PATIENT.
--- NOTE | 2019-08-21 19:54 | NUR ---
PT LEFT IN WHEELCHAIR, ESCORTED BY FIN[employer]CIAL [employer] ASSOCIATE TO FRONT EXIT...FAMILY YELLING AT PATIENT AND VERY UPSET THAT HE WANTS TO GO HOME. ASSISTED TO AWAITING VEHICLE.
== END 2019-08-21 20:01 | disposition home or self-care (01) ==
LOC: D.ER 20:53 → D.MS 23:14 → OBSVTIME 23:14 → D.MS 23:14
PROVIDERS: Family Medicine; ADMIT Internal Medicine Nephrology; ATTEND Internal Medicine Nephrology
DX: K52.9 Noninfective gastroenteritis and colitis, unspecified (principal); D64.9 Anemia, unspecified; E87.6 Hypokalemia; E87.1 Hypo-osmolality and hyponatremia; E83.42 Hypomagnesemia; I10 Essential (primary) hypertension; E78.5 Hyperlipidemia, unspecified; I48.91 Unspecified atrial fibrillation; Z85.46 Personal history of malignant neoplasm of prostate; K56.7 Ileus, unspecified; K59.00 Constipation, unspecified; Z85.118 Personal history of other malignant neoplasm of bronchus and lung; R53.1 Weakness

== ENCOUNTER → 2019-09-09 12:37 | Outpatient (CLI) | payer MEDICARE ==
[2019-08-21 09:49] VITALS: BMI 21.0
[~2019-09-09 12:37] MED LIST changes: +ASPIRIN81 MG PO; +COLACE100 MG PO; +FERROUS SULFAT325 MG PO; +PROTONIX40 MG PO
== END | disposition home or self-care (01) ==
LOC: D.MRI 12:37
PROVIDERS: ATTEND Internal Medicine Hematology & Oncology
DX: C34.2 Malignant neoplasm of middle lobe, bronchus or lung (principal)

== ENCOUNTER → 2019-09-10 09:00 | Outpatient (CLI) | payer MEDICARE ==
[2019-08-21 09:49] VITALS: BMI 21.0
== END | disposition home or self-care (01) ==
LOC: D.RAD 09:00
PROVIDERS: ATTEND Thoracic Surgery (Cardiothoracic Vascular Surgery)
DX: Z98.890 Other specified postprocedural states (principal)

== ENCOUNTER 2019-09-20 09:24 | Emergency (ER) | payer MEDICARE ==
[~2019-09-20] VITALS: Ht 182.9 cm; Wt 65.9 kg
[2019-09-20 09:32] VITALS: Ht 182.9 cm; Wt 65.9 kg
[2019-09-20 09:53] LABS: BASOPHILS 0.6 % (0-2); EOSINOPHILS 1.9 % (0-7); HEMATOCRIT 36.7 % (42.0-54.0); HEMOGLOBIN 12.5 g/dL (13.5-17.5); IMMATURE GRANULOCYTES 0.3 % (0-5); LYMPHOCYTES 21.8 % (15-50); MCH 31.6 pg (26.0-34.0); MCHC 34.1 g/dL (31.0-37.0); MCV 92.9 fL (80.0-100.0); MEAN PLATELET VOLUME 8.5 fL (7.4-10.4); MONOCYTES 17.7 % (2-11); NEUTROPHILS 57.7 % (40-80); PLATELET COUNT 241 10x3/uL (130-400); RBC 3.95 10x6/uL (4.20-6.10); WBC 3.6 10x3/uL (4.8-10.8)
[2019-09-20 09:55] LABS: APPEARANCE CLEAR (CLEAR); COLOR YELLOW (YELLOW)
[2019-09-20 09:56] LABS: BILIRUBIN NEGATIVE (NEGATIVE); GLUCOSE NEGATIVE (NEGATIVE); KETONE NEGATIVE (NEGATIVE); NITRITE NEGATIVE (NEGATIVE); PROTEIN NEGATIVE (NEGATIVE); UROBILINOGEN NORMAL (NORMAL)
[2019-09-20 10:06] LABS: CALC OSMOLALITY 262 mosm/kg (275-300); CALCIUM 9.4 mg/dL (8.5-10.1); CARBON DIOXIDE 32.1 mmol/L (21.0-32.0); CHLORIDE - SERUM 95 mmol/L (98-107); CREATININE - SERUM 0.9 mg/dL (0.6-1.3); GLUCOSE 104 mg/dL (74-106); POTASSIUM - SERUM 3.5 mmol/L (3.5-5.1); SODIUM 132 mmol/L (136-145); UREA NITROGEN 8 mg/dL (7-18); eGFR NON AFRICAN AMERICAN 86 mL/min (90-120)
[2019-09-20 10:16] LABS: ALBUMIN 3.5 g/dL (3.4-5.0); ALKALINE PHOSPHATASE 70 U/L (30-120); ALT (SGPT) 15 U/L (10-68); AMYLASE - SERUM 44 U/L (25-115); BILIRUBIN - TOTAL 0.74 mg/dL (0.2-1.3); LIPASE 53 U/L (73-393); PROTEIN - SERUM 6.8 g/dL (6.4-8.2); TROPONIN-I < 0.017 ng/mL (0.000-0.060)
[2019-09-20 11:55] VITALS: BP 130/78
== END 2019-09-20 12:00 | disposition home or self-care (01) ==
LOC: D.ER 09:24
PROVIDERS: Family Medicine
DX: E87.1 Hypo-osmolality and hyponatremia (principal); D64.9 Anemia, unspecified; E87.8 Other disorders of electrolyte and fluid balance, not elsewhere classified; D72.819 Decreased white blood cell count, unspecified; I10 Essential (primary) hypertension; I48.91 Unspecified atrial fibrillation; E78.5 Hyperlipidemia, unspecified; Z85.118 Personal history of other malignant neoplasm of bronchus and lung

== ENCOUNTER → 2019-09-22 12:03 | Outpatient (CLI) | payer MEDICARE ==
[2019-09-20 09:32] VITALS: BMI 19.7
== END | disposition home or self-care (01) ==
LOC: D.NM 12:03
PROVIDERS: ATTEND Family Medicine
DX: R11.0 Nausea (principal)

== ENCOUNTER → 2020-04-12 13:16 | Outpatient (CLI) | payer MEDICARE ==
[2019-10-10 22:31] VITALS: BMI 21.7
[~2020-04-12 13:16] MED LIST changes: +NORVASC10 MG PO
== END | disposition home or self-care (01) ==
LOC: D.RAD 13:16
PROVIDERS: ATTEND Thoracic Surgery (Cardiothoracic Vascular Surgery)
DX: C34.91 Malignant neoplasm of unspecified part of right bronchus or lung (principal)

== ENCOUNTER → 2020-12-15 10:08 | Outpatient (CLI) | payer MEDICARE ==
[2020-07-15 12:04] VITALS: BMI 19.0
[~2020-12-15 10:08] MED LIST changes: +CELEXA20 MG PO; +FLAGYL500 MG PO; +LEVOFLOXACIN500 MG PO; +TRAZODONE HCL50 MG PO; +[UNRECOGNIZED DRUG - REMARK]
== END | disposition home or self-care (01) ==
LOC: D.CT 10:08
PROVIDERS: ATTEND Internal Medicine Hematology & Oncology
DX: C34.2 Malignant neoplasm of middle lobe, bronchus or lung (principal)

== ENCOUNTER → 2021-01-07 09:54 | Outpatient (CLI) | payer MEDICARE ==
[2020-07-15 12:04] VITALS: BMI 19.0
== END | disposition home or self-care (01) ==
LOC: D.RAD 09:54
PROVIDERS: ATTEND Family Medicine
DX: R13.10 Dysphagia, unspecified (principal)